=== PATIENT | female | born 1985 | race Caucasian/White ===

== ENCOUNTER 2017-09-07 20:10 | Emergency (ER) | payer OTHER ==
[2017-09-07 20:38] VITALS: BP 132/80
--- NOTE | 2017-09-07 21:00 | ED ---
GI/ HPI - HPI Summary HPI Summary: [age] yr old female with the complaint of left flank pain for over a week, and now NVD for past couple of days. No urinary symptoms. Has had fever, chills. Temp up toe 101. Denies hematuria. She did have a kidney stone removed left kidney 6 months ago. The patient states and her states that he had the same symptoms of NVD a few days ago with fever. - History of Current Complaint Chief Complaint: UCGI Time Seen by Provider: 09/07/17 20:39 Stated Complaint: VOMITING FEVER URINARY Hx Last Menstrual Period: 09/06/17 Pain Intensity: 4 - Allergy/Home Medications Allergies/Adverse Reactions: Allergies Allergy/AdvReac Type Severity Reaction Status Date / Time albuterol Allergy Vomiting Verified 09/07/17 20:31 clarithromycin [From Biaxin] Allergy Vomiting Verified 09/07/17 20:31 Home Medications: Home Medications medroxyPROGESTERone ACETATE* [DEPO-Provera*] 1 inj SEE INSTRUCTIONS 09/07/17 [ History Confirmed 09/07/17] PMH/Surg Hx/FS Hx/Imm Hx - Surgical History Surgery Procedure, Year, and Place: Tonsilectomy. . 2018 Kidneys stones LEFT side Infectious Disease History: No Infectious Disease History: Denies: Hx Clostridium Difficile, Hx Hepatitis, Hx Human Immunodeficiency Virus (HIV), Hx of Known/Suspected MRSA, Hx Shingles, Hx Tuberculosis, Hx Known/ Suspected VRE, Hx Known/Suspected VRSA, History Other Infectious Disease, Traveled Outside the [place] in Last 30 Days - Family History Known Family History: Positive: None - Social History Alcohol Use: Rare Substance Use Type: Reports: None Smoking Status (MU): Never Smoked Tobacco Review of Systems Positive: Fever, Chills Positive: Vomiting, Diarrhea, Nausea Positive: flank pain All Other Systems Reviewed And Are Negative: Yes Physical Exam Triage Information Reviewed: Yes Vital Signs On Initial Exam: Initial Vitals Temp Pulse Resp BP Pulse Ox 98.6 F 105 17 132/80 98 09/07/17 20:32 09/07/17 20:32 09/07/17 20:32 09/07/17 20:32 09/07/17 20:32 Vital Signs Reviewed: Yes Appearance: Positive: Well-Appearing, No Pain Distress Skin: Positive: Warm, Skin Color Reflects Adequate Perfusion Head/Face: Positive: Normal Head/Face Inspection Neck: Positive: Nontender Cardiovascular: Positive: RRR. Negative: Murmur Abdomen Description: Positive: Nontender. Negative: CVA Tenderness (R), CVA Tenderness (L) Musculoskeletal: Positive: Strength/ROM Intact Neurological: Positive: Sensory/Motor Intact, Alert, Oriented to Person Place, Time, CN Intact II-III Psychiatric: Positive: Normal - Lloyd Coma Scale Best Eye Response: 4 - Spontaneous Best Motor Response: 6 - Obeys Commands Best Verbal Response: 5 - Oriented Coma Scale Total: 15 Diagnostics - Vital Signs Vital Signs Temp Pulse Resp BP Pulse Ox 09/07/17 20:32 98.6 F 105 17 132/80 98 - Laboratory Lab Results: Lab Results 09/07/17 Range/Units 20:46 POC Urine Color Anayeli POC Urine Clarity Clear POC Urine pH 5.0 (5-9) POC Ur Specif [place] 1.020 (1.010-1.030) POC Urine Protein Trace A (Negative) POC Ur Glucose (UA) Negative (Negative) POC Urine Ketones 1+ A (Negative) POC Urine Blood Negative (Negative) POC Urine Nitrite Negative (Negative) POC Urine Bilirubin Negative (Negative) POC Urine Urobilinogen 0.2 (Negative) POC U Leukocyte Esteras Negative (Negative) Lab Statement: Any lab studies that have been ordered have been reviewed, and results considered in the medical decision making process. GIGU Course/Dx - Course Course Of Treatment: 32 yr old with negative urine, neg . She has had NVD. Likely gastroenteritis. However with history of prior kidney proceedure, flank pain and history of fever but not here now; it is recommended that she go to the ER for full labs and further work up. They have verbalized to me that they will go to the [place] [facility] where she has received prior care for a further work up this evening. - Diagnoses Provider Diagnoses: Gastroenteritis, Left flank pain Discharge - Sign-Out/Discharge Documenting (check all that apply): Discharge/Admit/Transfer - Discharge Plan Condition: Good Disposition: TRANS HIGHER LVL OF CARE FAC Patient Education Materials: Gastroenteritis (ED), Flank Pain (ED) Referrals: [facility] PHYSICIAN REFERRAL [Outside] No Primary Care Phys,NOPCP [Primary Care Provider] - Additional Instructions: Go the the ER in [place] for further work up for your fever today and left flank pain. - Billing Disposition and Condition Condition: GOOD Disposition: Trans Higher Lvl of Care Fac
== END 2017-09-07 21:12 | disposition short-term general hospital (02) ==
LOC: UCCORT 20:10
DX: K52.9 Noninfective gastroenteritis and colitis, unspecified (principal); R10.9 Unspecified abdominal pain; Z87.442 Personal history of urinary calculi; Z88.1 Allergy status to other antibiotic agents; Z88.8 Allergy status to other drugs, medicaments and biological substances
CPT/HCPCS: 81003; 84702; 99212; G0463

== ENCOUNTER 2019-03-14 13:47 | Emergency (ER) | payer MEDICAID, OTHER ==
--- OUTSIDE RECORDS SUMMARY | 2019-03-14 14:32 | XMS REPORT | Summary of Care ---
:1985 Author Organization [facility] Address [address] [facility] [place] [address] Care Team Providers Name Role Phone Brandin Reynoso MD Primary Care Provider Reason for Referral Radiology Services (Routine) Status Reason Specialty Diagnoses / Referred By Referred To Procedures Contact Contact Pending Review Radiology Diagnoses Other ascites Karol Rabago NP [address] [place] [address] Reason for Visit Reason Comments Follow-up Follow-up on recent labs. Encounter Details Date Type Department Care Team Description 02/20/2019 Office Visit [facility]/Hepa Karol Bran NP (Primary Dx) tolog[address] [facility] [place] [address] [place] [address] [phone] Allergies Active Allergy Reactions Severity Noted Date Comments Clarithromycin GI Reaction 12/30/2018 Albuterol Sulfate GI Reaction 12/30/2018 documented as of this encounter (statuses as of 02/20/2019) Medications Medication Sig Dispensed Refills Start Date End Date Status allopurinol (ZYLOPRIM) Take 100 mg by 0 Active 100 MG Oral Tab mouth DAILY. Glucose Blood In Vitro by In Vitro 0 Active Strip route. lisinopril (PRINIVIL, Take 2.5 mg by 0 Active ZESTRIL) 2.5 MG Oral mouth DAILY. Tab metFORMIN (GLUCOPHAGE) Take 500 mg by 0 Active 500 MG Oral Tab mouth DAILY. documented as of this encounter (statuses as of 02/20/2019) Active Problems Problem Noted Date Type 2 diabetes mellitus 12/30/2018 documented as of this encounter (statuses as of 02/20/2019) Social History Tobacco Use Types Packs/Day Years Used Date Former Smoker 0 Quit: 2019 Smokeless Tobacco: Never Used Sex Assigned at Date Recorded Not on file Job Start Date Occupation Industry Not on file Not on file Not on file Travel History Travel Start Travel End No recent travel history available. documented as of this encounter Last Filed Vital Signs Vital Sign Reading Time Taken Comments Blood Pressure 122/78 02/20/2019 2:01 PM EST Pulse 72 02/20/2019 2:01 PM EST Temperature 36.7 02/20/2019 2:01 PM EST C (98.1 F) Respiratory Rate - - Oxygen Saturation - - Inhaled Oxygen Concentration - - Weight 105 kg (231 lb 8 oz) 02/20/2019 2:01 PM EST Height 160 cm (5' 3") 02/20/2019 2:01 PM EST Body Mass Index 41.01 02/20/2019 2:01 PM EST documented in this encounter Patient Instructions Patient InstructionsWillKarol guerrero NP - 02/20/2019 2:00 PM EST1. Referral placed to Interventional Radiologist as discussed 2. Follow up after the above Thank you for choosing the [facility] for your needs today! -Karol Rabago N.P. , Please call if you need to cancel or change your appt. time. Thank you for choosing [facility] for your health care needs, and for consulting with [facility] today. You may receive a survey following this visit, or after an upcoming hospital stay. As easy as it is to feel overloaded with surveys, we are required to send them out randomly and they do provide important feedback so that we may serve your needs in the best way. Please do take the few minutes required to complete the survey if you receive one. We get them too, after seeing the doctor, and they only take a few minutes to complete. documented in this encounter Progress Notes Karol Rabago NP - 02/20/2019 2:00 PM EST PATIENT: Anais Peterson : 1985 DATE OF SERVICE: 02/20/2019 REFERRING PRACTITIONER: Karol Rabago PRIMARY CARE PROVIDER: Brandin Reynoso CHIEF COMPLAINT: Chief Complaint Patient presents with Follow-up Follow-up on recent labs. Subjective HISTORY OF PRESENT ILLNESS: Anais Peterson is a 34-y.o. female who presents for follow-up of recent testing after being found to have ascites. She has history of abnormal CT and US of the abdomen at her [place] ER visit 2018. She was found to have ascites, with evidence of fatty infiltration of the liver but no hepatosplenomegaly. She alsohas a distant history of pancreatitis, and now is a diabetic, and has family history of liver disease in her mother. Liver testing here to rule out other causes of chronic liver disease were negative. Denies abdominal pain, heartburn, dysphagia, fatigue, nausea, vomiting, melena, hamatemesis, hematochezia, constipation, diarrhea, jaundice, fevers, chills, night sweats, weight loss, easy bruising, chest pain, shortness of breath, dysuria, hematuria, pyuria, joint pains, acholic stools, dark urine orsystemic pruritis. Current Outpatient Medications Medication Sig allopurinol (ZYLOPRIM) 100 MG Oral Tab Take 100 mg by mouth DAILY. Glucose Blood In Vitro Strip by In Vitro route. lisinopril (PRINIVIL, ZESTRIL) 2.5 MG Oral Tab Take 2.5 mg by mouth DAILY. metFORMIN (GLUCOPHAGE) 500 MG Oral Tab Take 500 mg by mouth DAILY. No current facility-administered medications for this visit. Allergies Allergen Reactions Biaxin [Clarithromycin] GI Reaction Ventolin [Albuterol Sulfate] GI Reaction REVIEW OF SYSTEMS: All remaining review of systems was negative except for as noted in the history of present illness/subjective. Objective PHYSICAL EXAMINATION: VITALS: BP 122/78 | Pulse 72 | Temp 98.1 F (36.7 C) | Ht 5' 3" (1.6 m) | Wt 231 lb 8 oz(105 kg) | BMI 41.01 kg/m Body mass index is 41.01 kg/ m. GENERAL: alert, oriented, no acute distress. HEENT: No scleral icterus, MMM Psych: Affect normal Neck: no lymphadenopathy LUNGS: clear to auscultation bilaterally. HEART: regular rhythm, no murmurs, no gallops, no rubs. ABDOMEN: general exam: soft, non-tender, non-distended, without masses or organomegaly, normal active bowel sounds, Brandt's sign negative. Extrmities: no edema Skin: clear Neuro: gait normal, a&o x 3 RECTAL: exam deferred.,a IMPRESSION: ICD-9-CM ICD-10-CM 1. Other ascites 789.59 R18.8 REFER TO INTERVENTIONAL RADIOLOGIST Will perform diagnostic paracentesis. She prefers [facility] for this. Plan PLAN: Patient Instructions 1. Referral placed to Interventional Radiologist as discussed 2. Follow up after the above Thank you for choosing the [facility] for your needs today! -Karol Rabago N.P. , Please call if you need to cancel or change your appt. time. Thank you for choosing [facility] for your health care needs, and for consulting with [facility] today. You may receive a survey following this visit, or after an upcoming hospital stay. As easy as it is to feel overloaded with surveys, we are required to send them out randomly and they do provide important feedback so that we may serve your needs in the best way. Please do take the few minutes required to complete the survey if you receive one. We get them too, after seeing the doctor, and they only take a few minutes to complete. Author: Karol Rabago NP 02/20/2019 14:37 documented in this encounter Plan of Treatment Name Type Priority Associated Diagnoses Order Schedule REFER TO INTERVENTIONAL Referral Routine Other ascites Expected: RADIOLOGIST 02/20/2019, Expires: 02/21/2020 Health Maintenance Due Date Last Done Comments Diabetic Eye Exam 1985 HEMOGLOBIN A1C 1985 PAP SMEAR 1985 PNEUMOCOCCAL 0-64 YRS (1 of 1 - 02/10/1990 PPSV23) DEPRESSION SCREENING 1996 HIV SCREENING 02/10/1999 FOOT EXAM 02/10/2002 INFLUENZA VACCINE (#1) 2018 HPV IMMUNIZATION SERIES Aged Out No longer eligible based on patient's age to complete this topic MENINGOCOCCAL VACCINE IMM Aged Out No longer eligible based on patient's age to complete this topic documented as of this encounter Results Not on filedocumented in this encounter Visit Diagnoses Diagnosis Other ascites - Primary documented in this encounter documented as of this encounter
--- OUTSIDE RECORDS SUMMARY | 2019-03-14 14:32 | XMS REPORT | Continuity of Care Document ---
:1985 External Reference #:[id number] Author Name Carlos Peterson N.P. Address [address] [facility] [address] [place] [address] Care Team Providers Name Role Phone Brandin Reynoso MD - Family Medicine Care Team Information Shop Service Technician [phone] Problems Description No Information Available Social History Type Date Description Comments Sex Unknown ETOH Use Occasionally consumes alcohol Tobacco Use Start: Unknown End: Patient is a former smoker Unknown Recreational Drug Use Denies Drug Use Smoking Status Reviewed: 01/16/19 Patient is a former smoker Allergies, Adverse Reactions, Alerts Active Allergies Reaction Severity Comments Date Ventolin Nausea Moderate 10/31/2018 Biaxin Nausea Moderate 10/31/2018 Medications Active Medications SIG Qnty Indications Ordering Provider Date Allopurinol 1 by mouth every 90tabs M10.9 Brandin Reynoso, 11/14/2018 100mg day M.D. Tablets Metformin HCL Take One Tablet 30tabs E11.9 Brandin Reynoso, 10/31/2018 500mg By Mouth Every M.D. Tablets Day With Food Freestyle Lite Test fs qac and at 100units E11.9 Brandin Reynoso, 2018 bedtime as M.D. Strips needed dx:e11.65 Lisinopril 1 by mouth every 90tabs E11.9 Brandin Reynoso, 10/31/2018 2.5mg day M.D. Tablets History Medications Furosemide 1 by mouth every 7tabs R18.8 Brandin Reynoso, 12/26/2018 - 20mg Tablets day x 1 week M.D. 01/02/2019 Immunizations CPT Code Status Date Vaccine Lot # [id number] Given 12/07/2018 MMR [id number] Vital Signs Date Vital Result Comment 01/18/2019 2:59pm BP Systolic 125 mmHg BP Diastolic 65 mmHg Height 63 inches 5'3" Weight 229.00 lb BMI (Body Mass Index) 40.6 kg/m2 Heart Rate 83 /min Respiratory Rate 16 /min 01/04/2019 3:09pm BP Systolic 132 mmHg BP Diastolic 63 mmHg Height 63 inches 5'3" Weight 229.00 lb BMI (Body Mass Index) 40.6 kg/m2 Heart Rate 94 /min Respiratory Rate 17 /min Results Test Acquired Date Facility Test Result H/L Range Note CMP 01/04/2019 [facility] Sodium 140 mmol/L (136-145) [address] [facility] (607)- - Potassium 4.2 mmol/L (3.6-5.2) Chloride 110 mmol/L High (100-108) Co2 24 mmol/L (22-31) Anion Gap 6 mmol/L Low (7-16) Urea Nitrogen 17 mg/dL (7-24) Creatinine 0.79 mg/dL (0.60-1.00) BUN/Creat Ratio 21.5 RATIO High (10.0-20.0) Glucose 107 mg/dL High (70-99) Calcium 10.1 mg/dL (8.4-10.2) Total Protein 7.5 g/dL (6.4-8.2) Albumin 3.7 g/dL (3.5-4.6) Globulin 3.8 g/dL (2.7-4.3) Alb/Glob Ratio 1.0 RATIO Alkaline Phosphatase 58 U/L (45-117) Bilirubin,Total 0.3 mg/dL (0.0-1.0) Ast (Sgot) 8 U/L Low (11-39) Alt (SGPT) 19 U/L (12-78) GFR >60 ml/min/1.73m2 (>59) GFR ( Amer) >60 ml/min/1.73m2 (>59) GFR Interpretation <SEE NOTE> 1 CBC Without Diff 10/31/2018 [facility] WBC 6.3 10*3/uL (4.1-11.0) [address] [facility] (607)- - RBC 5.29 10*6/uL (4.00-5.40) HGB 15.0 g/dL (12.0-16.0) HCT 44.8 % (36.0-47.0) MCV 84.8 fL (80.0-95.0) MCH 28.4 pg (27.0-32.0) MCHC 33.4 g/dL (32.0-36.0) RDW 14.4 % (10.5-14.5) PLT 267 10*3/uL (150-450) MPV 8.0 fL (7.1-10.7) CMP 10/31/2018 [facility] Sodium 140 mmol/L (136-145) [address] (077)- - Potassium 4.7 mmol/L (3.6-5.2) Chloride 109 mmol/L High (100-108) Co2 24 mmol/L (22-31) Anion Gap 7 mmol/L (7-16) Urea Nitrogen 17 mg/dL (7-24) Creatinine 0.91 mg/dL (0.60-1.00) BUN/Creat Ratio 18.7 RATIO (10.0-20.0) Glucose 106 mg/dL High (70-99) Calcium 9.4 mg/dL (8.4-10.2) Total Protein 7.0 g/dL (6.4-8.2) Albumin 3.6 g/dL (3.5-4.6) Globulin 3.4 g/dL (2.7-4.3) Alb/Glob Ratio 1.1 RATIO Alkaline Phosphatase 55 U/L (45-117) Bilirubin,Total 0.2 mg/dL (0.0-1.0) Ast (Sgot) 9 U/L Low (11-39) Alt (SGPT) 22 U/L (12-78) GFR >60 ml/min/1.73m2 (>59) GFR ( Amer) >60 ml/min/1.73m2 (>59) GFR Interpretation <SEE NOTE> 2 Hemoglobin A1c 10/31/2018 [facility] Hemoglobin A1c @ 5.9 % (4.0-6.0) 3 [address] [facility] (054)- - Est Average Glucose 123 mg/dL Lipid 10/31/2018 [facility] Cholesterol @ 160 mg/dL (0-200) [address] [facility] (313)- - Triglyceride @ 69 mg/dL (30-200) HDL Cholesterol @ 50 mg/dL (>40) 4 Chol/HDL Ratio 3.2 RATIO 5 LDL Chol (Calc) 96 mg/dL (<130) 6 Laboratory test 10/31/2018 [facility] Free Thyroxine 1.03 ng/dL (0.76- 1.46) finding [facility] @ (607)- - TSH,Ultrasensitive @ 1.130 mIU/L (0.360-4.170) Uric Acid 6.9 mg/dL High (2.6-6.0) Esr 15 mm/h (0-20) Mumps Igg (Immune) @ POSITIVE AI 7 Measles Igg AB @ POSITIVE AI 8 Rubella Igg AB @ NEGATIVE AI 9 1 NORMAL KIDNEY FUNCTION OR MILD DISEASE - GFR >OR= 60 CHRONIC KIDNEY DISEASE - GFR 15 - 59 RENAL FAILURE - GFR <15 Est. GFR calculation based on the MDRD study equation, which assumes a steady state for creatinine. Est. GFR should not be used for medication dosing. 2 NORMAL KIDNEY FUNCTION OR MILD DISEASE - GFR >OR= 60 CHRONIC KIDNEY DISEASE - GFR 15 - 59 RENAL FAILURE - GFR <15 Est. GFR calculation based on the MDRD study equation, which assumes a steady state for creatinine. Est. GFR should not be used for medication dosing. 3 Performed using Graphenea immunoassay. Care must be taken when interpreting HbA1c results in patients with a hemoglobin variant or decreased erythrocyte lifespan. Values 5.7 - 6.4% suggest prediabetes. Values >=6.5% are diagnostic for diabetes. REFERENCE: DIABETES CARE 2018: 41(S13-S27). 4 PER NCEP ATP III GUIDELINES: RESULTS LOWER THAN 40 MG/DL ARE SUGGESTIVE OF INCREASED RISK FOR CORONARY ARTERY DISEASE. RESULTS > OR = TO 60 MG/DL ARE CONSIDERED A NEGATIVE RISK FACTOR. 5 INTERPRETATION OF CHOL-HDL RATIO CHD RISK FEMALE MALE VERY HIGH >8.3 >14.3 HIGH 5.6- 8.3 6.7- 14.3 AVERAGE 3.7- 5.6 4.0- 6.7 BELOW AVERAGE 2.5- 3.7 2.7- 4.0 PROTECTED <2.5 <2.7 6 PER NCEP ATP III GUIDELINES: OPTIMAL < 100 NEAR OPTIMAL 100 - 129 BORDERLINE HIGH 130 - 159 HIGH 160 - 189 VERY HIGH > 189 7 IgG antibody to Mumps detected. This may indicate that the patient was exposed to Mumps through infection or vaccination. 8 IgG antibody to Measles detected. This may indicate that the patient was exposed to Measles through infection or vaccination. 9 No Rubella specific IgG antibodies detected. Patient is presumed NOT to have had a previous exposure to Rubella through infection or vaccination. Procedures Date Code Description Status 10/31/2018 01376 Visual Screening Test Completed 10/31/2018 81909 Audiometry, Bekesy, Screening Completed Medical Devices Description No Information Available Encounters Type Date Location Provider Dx Diagnosis Office Visit 01/18/2019 [facility] Carlos Peterson, E11.9 Type 2 diabetes 3:00p N.P. mellitus without complications J30.9 Allergic rhinitis, unspecified E28.2 Polycystic ovarian syndrome Z87.442 Personal history of urinary calculi L20.9 Atopic dermatitis, unspecified E55.9 Vitamin D deficiency, unspecified E78.2 Mixed hyperlipidemia E66.01 Morbid (severe) obesity due to excess calories H52.13 Myopia, bilateral Z83.3 Family history of diabetes mellitus L68.0 Hirsutism M10.9 Gout, unspecified K76.0 Fatty (change of) liver, not elsewhere classified R18.8 Other ascites Z28.21 Immunization not carried out because of patient refusal Office Visit 01/04/2019 3:15p [facility] Carlos Peterson, E11.9 Type 2 diabetes N.P. mellitus without complications J30.9 Allergic rhinitis, unspecified E28.2 Polycystic ovarian syndrome Z87.442 Personal history of urinary calculi L20.9 Atopic dermatitis, unspecified E55.9 Vitamin D deficiency, unspecified E78.2 Mixed hyperlipidemia E66.01 Morbid (severe) obesity due to excess calories H52.13 Myopia, bilateral Z83.3 Family history of diabetes mellitus L68.0 Hirsutism M10.9 Gout, unspecified K76.0 Fatty (change of) liver, not elsewhere classified R18.8 Other ascites Office Visit 12/26/2018 3:00p [facility] Cralos Peterson, E11.9 Type 2 diabetes N.P. mellitus without complications J30.9 Allergic rhinitis, unspecified E28.2 Polycystic ovarian syndrome Z87.442 Personal history of urinary calculi L20.9 Atopic dermatitis, unspecified E55.9 Vitamin D deficiency, unspecified E78.2 Mixed hyperlipidemia E66.01 Morbid (severe) obesity due to excess calories H52.13 Myopia, bilateral Z83.3 Family history of diabetes mellitus L68.0 Hirsutism M10.9 Gout, unspecified K76.0 Fatty (change of) liver, not elsewhere classified R18.8 Other ascites Office Visit 12/07/2018 2:45p [facility] Carlos Peterson, E11.9 Type 2 diabetes N.P. mellitus without complications J30.9 Allergic rhinitis, unspecified E28.2 Polycystic ovarian syndrome Z87.442 Personal history of urinary calculi L20.9 Atopic dermatitis, unspecified E55.9 Vitamin D deficiency, unspecified E78.2 Mixed hyperlipidemia E66.01 Morbid (severe) obesity due to excess calories H52.13 Myopia, bilateral Z83.3 Family history of diabetes mellitus L68.0 Hirsutism M10.9 Gout, unspecified Z23 Encounter for immunization Office Visit 11/14/2018 10:30a [facility] Carlos Peterson, E11.9 Type 2 diabetes N.P. mellitus without complications J30.9 Allergic rhinitis, unspecified E28.2 Polycystic ovarian syndrome Z13.89 Encounter for screening for other disorder Z87.442 Personal history of urinary calculi L20.9 Atopic dermatitis, unspecified E55.9 Vitamin D deficiency, unspecified E78.2 Mixed hyperlipidemia E66.01 Morbid (severe) obesity due to excess calories H52.13 Myopia, bilateral Z83.3 Family history of diabetes mellitus L68.0 Hirsutism M10.9 Gout, unspecified Office Visit 10/31/2018 9:30a [facility] Carlos Peterson, E11.9 Type 2 diabetes N.P. mellitus without complications J30.9 Allergic rhinitis, unspecified E28.2 Polycystic ovarian syndrome Z13.89 Encounter for screening for other disorder Z87.442 Personal history of urinary calculi L20.9 Atopic dermatitis, unspecified E55.9 Vitamin D deficiency, unspecified E78.2 Mixed hyperlipidemia E66.01 Morbid (severe) obesity due to excess calories H52.13 Myopia, bilateral Z83.3 Family history of diabetes mellitus Z00.01 Encounter for general adult medical exam w abnormal findings L68.0 Hirsutism Assessments Date Code Description Provider 01/18/2019 E11.9 Type 2 diabetes mellitus without Carlos Peterson, N.P. complications 01/18/2019 J30.9 Allergic rhinitis, unspecified Carlos Peterson, N.P. 01/18/2019 E28.2 Polycystic ovarian syndrome Carlos Peterson N.P. 01/18/2019 Z87.442 Personal history of urinary calculi Carlos Peterson N.P. 01/18/2019 L20.9 Atopic dermatitis, unspecified Carlos Peterson N.P. 01/18/2019 E55.9 Vitamin D deficiency, unspecified Carlos Peterson N.P. 01/18/2019 E78.2 Mixed hyperlipidemia Carlos Peterson, N.P. 01/18/2019 E66.01 Morbid (severe) obesity due to excess Carlos Peterson, N.P. calories 01/18/2019 H52.13 Myopia, bilateral Carlos Peterson N.P. 01/18/2019 Z83.3 Family history of diabetes mellitus Carlos Peterson N.P. 01/18/2019 L68.0 Hirsutism Carlos Peterson N.PYanick 01/18/2019 M10.9 Gout, unspecified Carlos Peterson N.P. 01/18/2019 K76.0 Fatty (change of) liver, not elsewhere Carlos Peterson N.P. classified 01/18/2019 R18.8 Other ascites Carlos Peterson N.P. 01/18/2019 Z28.21 Immunization not carried out because of Carlos Peterson N.PYanick patient refusal 01/04/2019 E11.9 Type 2 diabetes mellitus without Carlos Peterson, N.P. complications 01/04/2019 J30.9 Allergic rhinitis, unspecified Carlos Peterson N.P. 01/04/2019 E28.2 Polycystic ovarian syndrome Carlos Peterson N.P. 01/04/2019 Z87.442 Personal history of urinary calculi Carlos Peterson, N.P. 01/04/2019 L20.9 Atopic dermatitis, unspecified Carlos Peterson, N.P. 01/04/2019 E55.9 Vitamin D deficiency, unspecified Carlos Peterson, N.P. 01/04/2019 E78.2 Mixed hyperlipidemia Carlos Peterson, N.P. 01/04/2019 E66.01 Morbid (severe) obesity due to excess Carlos Peterson, N.P. calories 01/04/2019 H52.13 Myopia, bilateral Carlos Peterson, N.P. 01/04/2019 Z83.3 Family history of diabetes mellitus Carlos Peterson, N.P. 01/04/2019 L68.0 Hirsutism Carlos Peterson, N.P. 01/04/2019 M10.9 Gout, unspecified Carlos Peterson, N.P. 01/04/2019 K76.0 Fatty (change of) liver, not elsewhere Carlos Peterson, N.P. classified 01/04/2019 R18.8 Other ascites Carlos Peterson, N.P. 12/26/2018 E11.9 Type 2 diabetes mellitus without Carlos Peterson, N.P. complications 12/26/2018 J30.9 Allergic rhinitis, unspecified Carlos Peterson, N.P. 12/26/2018 E28.2 Polycystic ovarian syndrome Carlos Peterson, N.P. 12/26/2018 Z87.442 Personal history of urinary calculi Carlos Peterson, N.P. 12/26/2018 L20.9 Atopic dermatitis, unspecified Carlos Peterson, N.P. 12/26/2018 E55.9 Vitamin D deficiency, unspecified Carlos Peterson, N.P. 12/26/2018 E78.2 Mixed hyperlipidemia Carlos Peterson, N.P. 12/26/2018 E66.01 Morbid (severe) obesity due to excess Carlos Peterson, N.P. calories 12/26/2018 H52.13 Myopia, bilateral Carlos Peterson, N.P. 12/26/2018 Z83.3 Family history of diabetes mellitus Carlos Peterson, N.P. 12/26/2018 L68.0 Hirsutism Carlos Peterson, N.P. 12/26/2018 M10.9 Gout, unspecified Carlos Peterson, N.P. 12/26/2018 K76.0 Fatty (change of) liver, not elsewhere Carlos Peterson, N.P. classified 12/26/2018 R18.8 Other ascites Carlos Peterson, N.P. 12/07/2018 E11.9 Type 2 diabetes mellitus without Carlos Peterson, N.PYanick complications 12/07/2018 J30.9 Allergic rhinitis, unspecified Carlos Peterson, N.P. 12/07/2018 E28.2 Polycystic ovarian syndrome Carlos Peterson N.P. 12/07/2018 Z87.442 Personal history of urinary calculi Carlos Peterson N.P. 12/07/2018 L20.9 Atopic dermatitis, unspecified Carlos Peterson, N.P. 12/07/2018 E55.9 Vitamin D deficiency, unspecified Carlos Peterson, N.P. 12/07/2018 E78.2 Mixed hyperlipidemia Carlos Peterson, N.P. 12/07/2018 E66.01 Morbid (severe) obesity due to excess Carlos Peterson, N.P. calories 12/07/2018 H52.13 Myopia, bilateral Carlos Peterson, N.P. 12/07/2018 Z83.3 Family history of diabetes mellitus Carlos Peterson N.P. 12/07/2018 L68.0 Hirsutism Carlos Peterson N.P. 12/07/2018 M10.9 Gout, unspecified Carlos Peterson, N.P. 12/07/2018 Z23 Encounter for immunization Carlos Peterson N.P. 11/14/2018 E11.9 Type 2 diabetes mellitus without Carlos Peterson, N.PYanick complications 11/14/2018 J30.9 Allergic rhinitis, unspecified Carlos Peterson, N.P. 11/14/2018 E28.2 Polycystic ovarian syndrome Carlos Peterson N.P. 11/14/2018 Z13.89 Encounter for screening for other disorder Carlos Peterson N.P. 11/14/2018 Z87.442 Personal history of urinary calculi Carlos Peterson N.P. 11/14/2018 L20.9 Atopic dermatitis, unspecified Carlos Peterson, N.P. 11/14/2018 E55.9 Vitamin D deficiency, unspecified Carlos Peterson, N.P. 11/14/2018 E78.2 Mixed hyperlipidemia Carlos Peterson, N.P. 11/14/2018 E66.01 Morbid (severe) obesity due to excess Carlos Peterson, N.P. calories 11/14/2018 H52.13 Myopia, bilateral Carlos Peterson, N.P. 11/14/2018 Z83.3 Family history of diabetes mellitus Carlos Peterson N.P. 11/14/2018 L68.0 Hirsutism Carlos Peterson N.P. 11/14/2018 M10.9 Gout, unspecified Carlos Peterson N.P. 10/31/2018 E11.9 Type 2 diabetes mellitus without Carlos Peterson N.P. complications 10/31/2018 J30.9 Allergic rhinitis, unspecified Carlos Peterson N.P. 10/31/2018 E28.2 Polycystic ovarian syndrome Carlos Peterson N.P. 10/31/2018 Z13.89 Encounter for screening for other disorder Carlos Peterson N.P. 10/31/2018 Z87.442 Personal history of urinary calculi Carlos Peterson N.P. 10/31/2018 L20.9 Atopic dermatitis, unspecified Brandin Reynoso M.D. 10/31/2018 L20.9 Atopic dermatitis, unspecified Carlos Peterson N.P. 10/31/2018 E55.9 Vitamin D deficiency, unspecified Carlos Peterson N.P. 10/31/2018 E78.2 Mixed hyperlipidemia Carlos Peterson N.P. 10/31/2018 E66.01 Morbid (severe) obesity due to excess Brandin Reynoso M.D. calories 10/31/2018 E66.01 Morbid (severe) obesity due to excess Carlos Peterson N.P. calories 10/31/2018 H52.13 Myopia, bilateral Brandin Reynoso M.D. 10/31/2018 H52.13 Myopia, bilateral Carlos Peterson N.P. 10/31/2018 Z83.3 Family history of diabetes mellitus Brandin Reynoso M.D. 10/31/2018 Z83.3 Family history of diabetes mellitus Carlos Peterson N.P. 10/31/2018 Z00.01 Encounter for general adult medical Carlos Peterson N.P. examination with abnormal findings 10/31/2018 L68.0 Hirsutism Carlos Peterson N.P. Plan of Treatment Future Appointment(s):04/19/2019 3:00 pm - Carlos Peterson N.P. at [facility] Functional Status Description No Information Available Mental Status Description No Information Available Referrals Refer to Reason for Referral Status Appt Date Sabino Gallardo MD Closed [address] [place] [address] [phone]
[2019-03-14 15:45] VITALS: BP 128/61
== END 2019-03-14 16:31 | disposition left against medical advice (07) ==
LOC: ED 13:47
DX: R10.9 Unspecified abdominal pain (principal); Z53.21 Procedure and treatment not carried out due to patient leaving prior to being seen by health care provider

== ENCOUNTER 2019-07-05 11:20 | Inpatient (IN) | payer OTHER ==
--- NOTE | 2019-07-05 12:55 | ED ---
Abdominal Pain/Female - HPI Summary HPI Summary: Patient is a 34 y/o F presenting to the ED for a chief complaint of abdominal pain and mid back pain. 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 She reports fever of 101 F as recently as 07/05/19 which she is managing with ibuprofen. Patient also notes a mild nonproductive cough and loose watery stools. Patient denies any chills, erythema of eyes, sore throat, chest pain, shortness of breath, nausea, vomiting, dysuria, hematuria, other urinary symptoms, edema, rash, or dizziness. The back pain worsens with deep breaths. She usually has any imaging done at [facility]. - History of Current Complaint Chief Complaint: EDAbdPain Stated Complaint: ABD PAIN BACK PAIN SURGERY 06/12 Time Seen by Provider: 07/05/19 12:08 Hx Obtained From: Patient Hx Last Menstrual Period: 09/06/17 Onset/Duration: Sudden Onset, Lasting Days, Still Present Timing: Constant Severity Initially: Moderate Severity Currently: Moderate Pain Intensity: 4 Pain Scale Used: 0-10 Numeric Location: Diffuse Radiates: No Aggravating Factor(s): Deep Breaths Alleviating Factor(s): OTC Analgesics - Ibuprofen Associated Signs and Symptoms: Positive: Fever - On vitals, 98 F, Cough - Nonproductive, Back Pain - Mid, Diarrhea. Negative: Chest Pain, Dizzy, Urinary Symptoms - Negative dysuria or hematuria, Nausea, Vomiting Allergies/Adverse Reactions: Allergies Allergy/AdvReac Type Severity Reaction Status Date / Time albuterol Allergy Vomiting Verified 07/05/19 11:28 clarithromycin [From Biaxin] Allergy Vomiting Verified 07/05/19 11:28 Home Medications: Home Medications Metformin HCl [Glucophage] 500 mg PO DAILY 03/10/19 [History Confirmed 07/05/19] allopurinoL [Allopurinol] 100 mg PO DAILY 03/10/19 [History Confirmed 07/05/19] lisinopriL [Lisinopril 2.5 MG-] 2.5 mg PO DAILY 03/10/19 [History Confirmed 04/24] Acetaminophen [Tylenol Extra Strength] 500 mg PO Q6H PRN 07/05/19 [History Confirmed 07/05/19] Docusate Sodium [Stool Softener] 50 mg PO Q6H PRN 07/05/19 [History Confirmed ] Ibuprofen TAB* [Motrin TAB* 600 MG] 600 mg PO Q6H PRN 07/05/19 [History Confirmed 07/05/19] traMADol TAB* [Ultram*] 50 mg PO Q6HR PRN 07/05/19 [History Confirmed 07/05/19] PMH/Surg Hx/FS Hx/Imm Hx Previously Healthy: Yes GI History: Reports: Other GI Disorders - Benign appendix adenoma Sensory History: Denies: Hx Legally Blind, Hx Deafness Opthamlomology History: Denies: Hx Legally Blind EENT History: Denies: Hx Deafness - Surgical History Surgical History: Yes Surgery Procedure, Year, and Place: Tonsilectomy. . 2018 Kidneys stones LEFT side. Exploratory surgery, 06/13/19, [facility] Infectious Disease History: No Infectious Disease History: Denies: Hx Clostridium Difficile, Hx Hepatitis, Hx Human Immunodeficiency Virus (HIV), Hx of Known/Suspected MRSA, Hx Shingles, Hx Tuberculosis, Hx Known/ Suspected VRE, Hx Known/Suspected VRSA, History Other Infectious Disease, Traveled Outside the in Last 30 Days - Family History Known Family History: Negative: Cardiac Disease, Hypertension, Diabetes - Social History Occupation: Unemployed Lives: With Family Alcohol Use: None Hx Substance Use: Yes Substance Use Type: Reports: Marijuana Hx Tobacco Use: Yes Smoking Status (MU): Current Some Day Smoker Type: Cigarettes Review of Systems Positive: Fever - On vitals, 98 F. Negative: Chills Negative: Erythema Negative: Sore Throat Negative: Chest Pain Positive: Cough - Nonproductive. Negative: Shortness Of Breath Positive: Abdominal Pain, Diarrhea. Negative: Vomiting, Nausea Negative: dysuria, hematuria Positive: Myalgia - Mid back pain. Negative: Edema Negative: Rash Neurological/Mental Status: Other - Negative dizziness All Other Systems Reviewed And Are Negative: Yes Physical Exam - Summary Physical Exam Summary: Constitutional: Well-developed, Well-nourished, Alert. (-) Distressed Skin: Warm, Dry HENT: Normocephalic; Atraumatic Eyes: Conjunctiva normal Neck: Musculoskeletal ROM normal neck. (-) JVD, (-) Stridor, (-) Tracheal deviation Cardio: Rhythm regular, rate normal, Heart sounds normal; Intact distal pulses; The pedal pulses are 2+ and symmetric. Radial pulses are 2+ and symmetric. (-) Murmur Pulmonary/Chest wall: Effort normal. (-) Respiratory distress, (-) Wheezes, (-) Rales Abd: Soft, (-) tenderness, (-) Distension, (-) Guarding, (-) Rebound Musculoskeletal: (-) Edema Lymph: (-) Cervical adenopathy Neuro: Alert, Oriented x3 Psych: Mood and affect Normal Triage Information Reviewed: Yes Vital Signs On Initial Exam: Initial Vitals Temp Pulse Resp BP Pulse Ox 98.0 F 102 16 134/84 96 07/05/19 11:24 07/05/19 11:24 07/05/19 11:24 07/05/19 11:24 07/05/19 11:24 Vital Signs Reviewed: Yes Procedures - Sedation Patient Received Moderate/Deep Sedation with Procedure: No Diagnostics - Vital Signs Vital Signs Temp Pulse Resp BP Pulse Ox 07/05/19 11:24 98.0 F 102 16 134/84 96 - Laboratory Result Diagrams: 07/05/19 13:16 07/05/19 13:16 Lab Statement: Any lab studies that have been ordered have been reviewed, and results considered in the medical decision making process. - CT Chest/Abdomen/Pelvis CTA CT Interpretation Completed By: Radiologist Summary of CT Findings: Chest/Abdomen/Pelvis CTA IMPRESSION: No definite pulmonary embolus is noted although opacification is suboptimal. No aortic dissection is noted. Right basilar and left lower lobe atelectasis is noted. There is a small amount of perihepatic fluid just under the anterior abdominal wall which may be postoperative in nature. This measures approximately 14 cm in length x 2 cm AP x 11 cm in width. Small amount of free air is noted and this may represent postoperative change. There is fluid in the left splenic fossa. Correlation with history of splenectomy is suggested. No free fluid is noted in the pelvis. Reviewed by Dr. Andino. Re-Evaluation - Re-Evaluation First Eval Re-Evaluation Time: 17:58 Change: Unchanged Comment: At 17:58, patient confirms she had an exploratory laparotomy. Abdominal Pain Fem Course/Dx - Course Course Of Treatment: Patient is a 34 y/o F presenting to the ED for a chief complaint of abdominal pain and mid back pain. 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 She reports fever of 101 F as recently as 07/05/19 which she is managing with ibuprofen. Patient also notes a mild nonproductive cough and loose watery stools. Patient denies any chills, erythema of eyes, sore throat, chest pain, shortness of breath, nausea, vomiting, dysuria, hematuria, other urinary symptoms, edema, rash, or dizziness. The back pain worsens with deep breaths. She usually has any imaging done at [facility]. On exam, unremarkable findings. In the ED course, patient was given iodixanol 100 ml IV , Tylenol 975 mg PO, piperacillin 3.375 gm IVPB, Zofran 4 mg IV, and IV fluids. Laboratory abnormal findings: WBC 18.2, RBC 3.39, Hgb 9, Hct 28, plt count 1059, absolute neuts 13.3, absolute monos 2.2, AST 9, CRP 154. UA shows 1+ protein, 2+ ketones, 1+ urine bacteria. Squamous epithelial cells present. Chest/Abdomen/Pelvis CTA IMPRESSION: No definite pulmonary embolus is noted although opacification is suboptimal. No aortic dissection is noted. Right basilar and left lower lobe atelectasis is noted. There is a small amount of perihepatic fluid just under the anterior abdominal wall which may be postoperative in nature. This measures approximately 14 cm in length x 2 cm AP x 11 cm in width. Small amount of free air is noted and this may represent postoperative change. There is fluid in the left splenic fossa. Correlation with history of splenectomy is suggested. No free fluid is noted in the pelvis. At 16:37, I spoke with a DATA CONTROL ASSISTANT at [facility] who will converse with the surgical oncologist and call back. I impressed upon the elevated WBC and persistent fever reported by the patient since the surgery and continued elevated CRP. We discussed the possibility of active COVID. Patient is having diarrhea and could have gastroenteritis. At 17:12, Dr. Zackery Russell recommends drainage and pigtail catheter for perihepatic fluid. I will inquire about IR drainage and consult the hospitalist. At 17:42, I discussed patients case with Dr. Mathew Gaines. He will call back. At 18:05, Dr. Erika Pressley agrees to consult on the patient. At 18:24, Dr. Mathew Gaines agrees to perform a percutaneous drainage if needed. At 18:27, Dr. Brenda Retana reviewed the patients case and agrees to admit the patient to [facility] with a diagnosis of post- operative infection and post-operative abscess. Patient will be admitted to [facility] with a diagnosis of post-operative infection and post-operative abscess. - Diagnoses Provider Diagnoses: Postoperative abscess, Postoperative infection - Provider Notifications Discussed Care Of Patient With: Zackery Russell - At 16:37, I spoke with a DATA CONTROL ASSISTANT at [facility] who will converse with the surgical oncologist and call back. I impressed upon the elevated WBC and persistent fever reported by the patient since the surgery and continued elevated CRP. We discussed the possibility of active COVID. Patient is having diarrhea and could have gastroenteritis. At 17: 12, Dr. Zackery Russell recommends drainage and pigtail catheter for perihepatic fluid. I will inquire about IR drainage and consult the hospitalist. At 17:42, I discussed patients case with Dr. Mathew Gaines. He will call back. At 18:05, Dr. Erika Pressley agrees to consult on the patient. At 18:24, Dr. Mathew Gaines agrees to perform a percutaneous drainage if needed. At 18:27, Dr. Brenda Retana reviewed the patients case and agrees to admit the patient to [facility] with a diagnosis of post-operative infection and post-operative abscess. Time Discussed With Above Provider: 16:37 Instructed by Provider To: Admit As Inpatient - Critical Care Time Critical Care Time: 75-104 min - 90 minutes CCT Discharge ED - Sign-Out/Discharge Documenting (check all that apply): Patient Departure - Admit - Discharge Plan Condition: Stable Disposition: ADMITTED TO [facility] Referrals: Brandin Reynoso MD [Primary Care Provider] - - Attestation Statements Document Initiated by Scribe: Yes Documenting Scribe: Kristine Rothman Provider For Whom Scribe is Documenting (Include Credential): Mamadou Andino MD Scribe Attestation: Kristine Gonzáles, scribed for Mamadou Andino MD on 07/05/19 at 1839. Status of Scribe Document: Ready
[2019-07-05] MEDS ORDERED: NS 0.9% 1000 ML** 1,000 ML IV ONE ×2 (12:59→19:35)
[2019-07-05 13:53] LABS: Hematocrit 28 % (35-47); Mean Corpuscular HGB Conc 33 g/dL (31-36); Mean Corpuscular Hemoglobin 27 pg (27-31); Mean Corpuscular Volume 82 fL (80-97); Mean Platelet Volume 7.4 fL (7.4-10.4); Platelet Count 1059 10^3/uL (150-450); Red Blood Count 3.39 10^6 /uL (3.70-4.87); Red Cell Distribution Width 17 % (10-15); White Blood Count 18.2 10^3/uL (3.5-10.8)
[2019-07-05 14:07] LABS: Albumin 3.9 g/dL (3.2-5.2); Albumin/Globulin Ratio 0.8 (1-3); C Reactive Protein 153.58 mg/L (<8.01); Calcium 10.8 mg/dL (8.6-10.3); EGFR African American 140.4 (>60); Globulin 4.9 g/dL (2-4); Potassium 3.6 mmol/L (3.5-5.0); Total Bilirubin 0.4 mg/dL (0.2-1.0); Total Protein 8.8 g/dL (6.4-8.9)
[2019-07-05 14:14] LABS: ABS Basophils 0.1 10^3/ul (0-0.2); ABS Lymphocytes 2.6 10^3/ul (1.0-4.8); ABS Monocytes 2.2 10^3/ul (0-0.8); ABS Neutrophils 13.3 10^3/ul (1.5-7.7); Eosinophil % 0.1 %; Lymphocyte % 14.3 %
[2019-07-05] MEDS ORDERED: Iodixanol* (CONTRAST) 320 MG/ML 100 ML SDV IV ONE (14:51)
[2019-07-05] MEDS ORDERED: Acetaminophen TAB* 325 MG PO ONE (15:25)
[2019-07-05 16:13] LABS: Urine Appearance Clear; Urine Bilirubin Negative (Negative); Urine Blood Negative (Negative); Urine Color Yellow; Urine Glucose Negative (Negative); Urine Ketones 2+ (Negative); Urine Nitrite Negative (Negative); Urine Protein 1+(30 mg/dL) (Negative); Urine Specific Gravity 1.053 (1.010-1.030); Urine Urobilinogen Negative (Negative)
[2019-07-05 16:15] LABS: Urine Bacteria 1+ (Absent); Urine Red Blood Cell Trace(0-2/hpf) (Absent); Urine Squamous Epithelial Cell Present (Absent); Urine White Blood Cell Trace(0-5/hpf) (Absent)
[2019-07-05] MEDS ORDERED: Piperacillin/Tazobac ADVAN(*) 3.375 GM in NS 0.9% 100 ML* 100 ML IVPB ONE ×2 (18:03→19:35)
[2019-07-05] MEDS ORDERED: Ondansetron INJ* 2 MG/ML VIAL IV ONE (18:18)
[2019-07-05] MEDS ORDERED: Dextrose 50% Syringe 50 ML* 25 GM/50 ML SYRINGE IV PUSH PRN (19:35)
[2019-07-05] MEDS ORDERED: Acetaminophen TAB* 325 MG PO PRN (19:35)
[2019-07-05] MEDS ORDERED: Morphine 4 MG/ML VIAL (1 ml) 4 MG/ML VIAL IV PRN (19:40)
[2019-07-05] MEDS ORDERED: Zosyn per Pharmacy* NOTE FOLLOW UP SCH (20:00)
--- NOTE | 2019-07-05 20:15 | CONSULT ---
Consult Consult: DATE OF CONSULTATION: 07/05/19 REASON FOR CONSULTATION: Intra-abdominal fluid collection s/p exploratory laparotomy PCP: Brandin Reynoso MD REQUESTING PHYSICIAN: Mamadou Andino MD HPI: Anais Peterson is a 34 year-old woman with a history of diabetes and polycystic ovarian syndrome who presents to the ED with fever, abdominal pain, and back pain for the past 1 week. In March 2019, she underwent appendectomy at [facility]. 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 She is now s/p exploratory laparotomy, bilateral salpingo- oophorectomy, splenectomy, and washout on 06/13/19 at [facility]. She was feeling well at the time of discharge. About 1 week ago, she started to develop fevers which she treated with ibuprofen. She also reports LUQ abdominal pain that radiates around to her mid-back as well as nausea and vomiting. The back pain bothers her most. She has been using ibuprofen and tramadol for pain control. Last bowel movement was a couple of days ago. Stool has been loose, but she also has been taking stool softeners and laxatives. Her appetite has been poor for the past week. It was normal after surgery, and she actually feels hungry now. She denies chest pain or shortness of breath. She is scheduled to return to [facility] for follow up on 07/09. In the ED, CTA thorax was negative for PE and overall unremarkable. CT abd/pelv showed a perihepatic fluid collection 14 x 2 x 11 cm. Labs are notable for WBC 18.2, platelets 1059, and CRP 153.58. She has received Zosyn and Tylenol for pain control. PMH: Appendiceal mucinous lesion Diabetes type 2 PCOS PSH: Appendectomy Mar 2019 in [facility] Ex lap, washout, splenectomy, BSO 06/13/19 at [facility] Tonsillectomy Home Medications Medication Instructions Recorded Confirmed Type Metformin HCl [Glucophage] 500 mg PO DAILY 03/10/19 07/05/19 History allopurinoL [Allopurinol] 100 mg PO DAILY 03/10/19 07/05/19 History lisinopriL [Lisinopril 2.5 MG-] 2.5 mg PO DAILY 03/10/19 07/05/19 History Acetaminophen [Tylenol Extra 500 mg PO Q6H PRN 07/05/19 07/05/19 History Strength] Docusate Sodium [Stool Softener] 50 mg PO Q6H PRN 07/05/19 07/05/19 History Ibuprofen TAB* [Motrin TAB* 600 MG] 600 mg PO Q6H PRN 07/05/19 07/05/19 History traMADol TAB* [Ultram*] 50 mg PO Q6HR PRN 07/05/19 07/05/19 History Allergies albuterol Allergy (Verified 07/05/19 11:28) Vomiting clarithromycin [From Biaxin] Allergy (Verified 07/05/19 11:28) Vomiting FH: Father has diabetes. Her mother due to cerebral hemorrhages after a fall. The patient thinks she may have had cancer but the work up was not completed due to the fall. She has 2 brothers, one with diabetes. SH: The patient lives with her and daughter. She smokes a mix of tobacco and marijuana. She denies alcohol use or other recreational drug use. ROS: 10-point review of systems was obtained. Pertinent positives and negatives are in the HPI. PHYSICAL EXAM: Temp Pulse Resp BP Pulse Ox 98.8 F 97 16 127/67 93 07/05/19 15:51 07/05/19 17:36 07/05/19 11:24 07/05/19 17:36 07/05/19 17:36 General: Appears uncomfortable but no acute distress. She is sitting up on the stretcher. HEENT: Normocephalic and atraumatic. Pupils equal, no scleral icterus. She wears glasses. Hirsute. Neck is supple. Trachea midline CV: RRR Respiratory: CTA. No accessory muscle use. Abdomen: Soft, obese. Mild tenderness to palpation in the LUQ. No rebound or guarding. Well-healing midline incision with lena in place. Mild erythema around the lena, no fluctuance. Extremities: Warm. No pedal edema. No calf tenderness. Skin: Warm and dry. Neuro: Alert and oriented x3. Moves all extremities equally. Psych: Flat affect. Laboratory Results - last 24 hr 07/05/19 07/05/19 07/05/19 13:16 13:16 13:16 WBC 18.2 H RBC 3.39 L Hgb 9.0 L Hct 28 L MCV 82 MCH 27 MCHC 33 RDW 17 H Plt Count 1059 H MPV 7.4 Neut % (Auto) 73.1 Lymph % (Auto) 14.3 [place] % (Auto) 12.1 Eos % (Auto) 0.1 Baso % (Auto) 0.4 Absolute Neuts (auto) 13.3 H Absolute Lymphs (auto) 2.6 Absolute Monos (auto) 2.2 H Absolute Eos (auto) 0.0 Absolute Basos (auto) 0.1 Absolute Nucleated RBC 0.0 Nucleated RBC % 0.0 Sodium 135 Potassium 3.6 Chloride 102 Carbon Dioxide 24 Anion Gap 9 BUN 13 Creatinine 0.59 Est GFR ( Amer) 140.4 Est GFR (Non-Af Amer) 116.0 BUN/Creatinine Ratio 22.0 H Glucose 104 H Lactic Acid 0.7 Calcium 10.8 H Total Bilirubin 0.40 AST 9 L ALT 9 Alkaline Phosphatase 76 C-Reactive Protein 153.58 H Total Protein 8.8 Albumin 3.9 Globulin 4.9 H Albumin/Globulin Ratio 0.8 L Lipase 28 Urine Color Urine Appearance Urine pH Ur Specific [place] Urine Protein Urine Ketones Urine Blood Urine Nitrate Urine Bilirubin Urine Urobilinogen Ur Leukocyte Esterase Urine WBC (Auto) Urine RBC (Auto) Ur Squamous Epith Cells Urine Bacteria Urine Glucose 07/05/19 15:34 WBC RBC Hgb Hct MCV MCH MCHC RDW Plt Count MPV Neut % (Auto) Lymph % (Auto) [place] % (Auto) Eos % (Auto) Baso % (Auto) Absolute Neuts (auto) Absolute Lymphs (auto) Absolute Monos (auto) Absolute Eos (auto) Absolute Basos (auto) Absolute Nucleated RBC Nucleated RBC % Sodium Potassium Chloride Carbon Dioxide Anion Gap BUN Creatinine Est GFR ( Amer) Est GFR (Non-Af Amer) BUN/Creatinine Ratio Glucose Lactic Acid Calcium Total Bilirubin AST ALT Alkaline Phosphatase C-Reactive Protein Total Protein Albumin Globulin Albumin/Globulin Ratio Lipase Urine Color Yellow Urine Appearance Clear Urine pH 5.0 Ur Specific [place] 1.053 H Urine Protein 1+(30 mg/dl) A Urine Ketones 2+ A Urine Blood Negative Urine Nitrate Negative Urine Bilirubin Negative Urine Urobilinogen Negative Ur Leukocyte Esterase Negative Urine WBC (Auto) Trace(0-5/hpf) Urine RBC (Auto) Trace(0-2/hpf) Ur Squamous Epith Cells Present A Urine Bacteria 1+ A Urine Glucose Negative CT abd/pelv: Large perihepatic fluid collection anterior abdomen. 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 The intra-abdominal collection is in the anterior abdomen but she complains most about back pain, which seems atypical. The patient is also being ruled out for coronavirus due to the fever and abdominal pain. The incision appears to be healing well and there is no evidence of a subcutanous abscess on CT scan. I agree with percutaneous drainage of the abdominal fluid collection. Dr Andino has already discussed the case with Dr Gaines. Dr Andino has also been in contact with her surgical team at [facility], who also agrees with drainage of the fluid collection. PLAN: Continue IV antibiotics. Plan for drain by IR tomorrow. Diet as tolerated, NPO after midnight. Pain control Patient has follow up appt at [facility] on 07/10/19, and I recommended that she keep that appt for now. Will follow.
--- NOTE | 2019-07-05 21:09 | HP ---
CC: Dr. Reynoso; Dr. Gaines; Dr. Erika Pressley * HISTORY AND PHYSICAL: DATE OF ADMISSION: 07/05/19 PRIMARY CARE PROVIDER: Dr. Reynoso. ATTENDING PHYSICIAN WHILE IN THE HOSPITAL: Dr. Johnson * (report dictated by Jason Rebolledo NP). CONSULTING INTERVENTIONAL RADIOLOGIST: Dr. Gaines. CONSULTING SURGEON: Dr. Erika Pressley. CHIEF COMPLAINT: 1. Abdominal pain. 2. Fever. 3. Vomiting. HISTORY OF PRESENT ILLNESS: Ms. 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 She does not know the name of the benign tumor. This was done in [place]; we are trying to get records. She says that over the last 48 hours, she has had progressively worsening abdominal discomfort with associated fevers and chills at home, although none documented here. She has been having pain described as a pressure, sharp, stabbing pain that radiates into her back and states that she has been having some nausea and vomiting and states that she has had a decreased appetite. She specifically denied any cough , sore throat, rhinorrhea, congestion, shortness of breath or chest pain. She says that she was concerned because her belly pain was getting worse. She felt that she was having some worsening redness near the midline abdominal incision. She came into the ER because the pain had become too great. She was evaluated and was found to have signs of sepsis. CT abdomen did show a fluid collection in her abdomen. Because of these findings, we were asked to evaluate for admission. PAST MEDICAL HISTORY: Significant for: 1. Diabetes. 2. Polycystic ovarian syndrome. 3. Hypertension. 4. Gout. PAST SURGICAL HISTORY: 1. She had an appendectomy. 2. Splenectomy. 3. Bilateral salpingo-oophorectomy. HOME MEDICATIONS: Include: 1. Tramadol 50 mg p.o. every 6 hours as needed. 2. Ibuprofen 600 mg every 6 hours as needed. 3. Colace 50 mg every 6 hours as needed. 4. Tylenol 500 mg every 6 hours as needed. 5. Lisinopril 2.5 mg daily. 6. Allopurinol 100 mg p.o. daily. 7. Metformin 500 mg p.o. daily. ALLERGIES TO MEDICATIONS: Include ALBUTEROL and BIAXIN. FAMILY HISTORY: She says both her parents to her knowledge are healthy, is reviewed and noncontributory. SOCIAL HISTORY: She does smoke marijuana. She does not drink alcohol. She is studying [employer]. Surrogate decision maker would be her fiance. REVIEW OF SYSTEMS: There is a reported fever at home, but none documented here. She denied any significant weight change. There is no double vision. She denies having any ear discharge. There was again no rhinorrhea, no sore throat, no thyroid enlargement. Denies any chest pain. No shortness of breath. No cough. There was abdominal pain. There was nausea. There was vomiting. There is no dysuria, no frequency, no seizure, no loss of consciousness, no pruritus and no skin ulcerations. Review of 14 systems completed, all others are negative. PHYSICAL EXAMINATION GENERAL: At this time, Ms. Peterson is a 34-year-old female patient. She is sitting in the ED stretcher. She does not appear to be in any acute distress. She appears to be well nourished and well developed. VITAL SIGNS: Blood pressure 127/67, pulse 97, respirations 18, O2 saturation 93 % on room air, temperature 98.8. HEENT: Head is atraumatic and normocephalic. Eyes: EOMs are intact. Sclerae anicteric and not pale. Throat: Oral mucosa appears to be moist. No oropharyngeal erythema. NECK: Supple. LUNGS: Clear to auscultation. No wheezes, rales, or rhonchi. HEART: Sounds S1 and S2. Regular rate and rhythm. No murmurs, rubs, or gallops. ABDOMEN: Soft. There was tenderness near the midline incision, but bowel sounds were present. She does have a midline abdominal incision, which appears to be intact, clean and dry. There is no purulent discharge. There is some erythema just at the lena, but not diffusely around the incision site and there is no warmth palpated. EXTREMITIES: Pulses were 2+ throughout. She had no peripheral edema. She is moving all 4 extremities with 5/5 strength. NEUROLOGIC: She is awake, alert, and oriented x3. SKIN: Grossly intact with the exception she has a midline abdominal incision. DIAGNOSTIC STUDIES/LAB DATA: WBC of 18.2, RBC of 3.39, hemoglobin 9.0, hematocrit of 28, platelet count of 1059. Sodium 135, potassium 3.6, chloride 102, bicarb 24, BUN 13, creatinine 0.59, glucose 104, lactic 0.7, calcium 10.8. Total bili 0.4, AST 9, ALT 9, alk phos 76. CRP 153. Lipase normal. Urine showed a high specific gravity of 1.053, protein 1+, ketones 2+, 1+ bacteria. She had a CTA of the chest, abdomen and pelvis, which showed impression: No definite pulmonary embolism is noted, although opacification is suboptimal. No aortic dissection is noted. Right basilar and left lower lobe atelectasis is noted. There is a small amount of perihepatic fluid just under the anterior abdominal wall, which may be postoperative in nature, measures approximately 14 cm in length by 2 cm in AP by 11 cm in width. Small amount of free air is noted and this may represent postoperative change. There is fluid in the left splenic fossa, correlation with history, splenectomy is suggested. No free fluid is noted in the pelvis. Old medical records were reviewed. ASSESSMENT AND PLAN: Ms. Peterson is a 34-year-old female patient coming into the ED today with complaints of abdominal pain, nausea, vomiting and fever. In the setting of having had a surgery approximately a month ago, she had a splenectomy and chemo wash and bilateral salpingo-oophorectomy. I am getting those records. Now found to have a fluid collection. She will be admitted under inpatient status for: 1. Sepsis, most likely secondary to intraperitoneal abscess. At this point, Dr. Gaines has been consulted. The plan is for an IR drain and cultures. She will be placed on Zosyn. She will get another liter of fluid down here in the ED. I did not give her the full 30 cc/kg because her lactic was stable and her blood pressure is holding. I will place her on normal saline 100 an hour. Surgery has been consulted. We will certainly start Zosyn. Repeat labs in the morning and continue to follow. COVID-19 was also sent off down in the ER, but I have a low suspicion for this given the lack of respiratory symptoms. 2. Hypercalcemia. This could be secondary to dehydration. I will go ahead and hydrate her and repeat a BMP later tonight. 3. Anemia. This could be postoperative anemia. I will trend her H and H given the fluid to make sure is not dropping. 4. Elevated platelets, most likely secondary to reaction due to acute infection. 5. Diabetes. She will be placed on a lispro sliding scale. 6. Hypertension. We will hold her lisinopril and restart when able. 7. Gout. Continue allopurinol. 8. DVT prophylaxis: She is moderate risk. I have placed her on Lovenox subcu. 9. Code status: Full code. 10. Fluids, electrolytes and nutrition: She can have a consistent carb diet and n.p.o. after midnight. TIME SPENT: Time spent on the admission was approximately 60 minutes, greater than half the time was spent [id number] with the patient obtaining my history and physical; the other half time was spent going over the plan of care with the patient and implementing plan of care. I did discuss the plan of care with my attending, Dr. Johnson; and she is in agreement. JASON REBOLLEDO, INVESTIGATIVE AGENT [id number]/[facility] #: [id number] JORDIN
[2019-07-05] MEDS: Enoxaparin(*) 40 MG/0.4 ML SYR SUBCUT SCH (22:42)
[2019-07-05] MEDS: ZOSYN 3.375 GM Q8H per EXTENDED INFUSION IVPB SCH ×2 (22:44)
[2019-07-05] MEDS: NS 0.9% 1000 ML** 1,000 ML IV SCH (22:46)
[2019-07-05] MEDS: Ondansetron INJ* 2 MG/ML VIAL IV PRN (23:13)
[2019-07-05] MEDS: oxyCODONE/Acetamin 5/325 MG* TAB PO PRN (23:13)
[2019-07-05] MEDS ORDERED: Morphine INJ* 4 MG/ML 1 ML SYRINGE (NEW SYRINGE VERSION) IV PRN (23:45)
[2019-07-05 23:48] LABS: Hematocrit 27 % (35-47); Hemoglobin 8.4 g/dL (12.0-16.0)
[2019-07-05 23:58] LABS: BUN/Creatinine Ratio 16.7 (8-20); Calcium 9.7 mg/dL (8.6-10.3); EGFR African American 155.5 (>60); EGFR Non-African American 128.5 (>60); Potassium 3.8 mmol/L (3.5-5.0)
[2019-07-06] MEDS: oxyCODONE/Acetamin 5/325 MG* TAB PO PRN ×5 (05:30→23:51)
[2019-07-06] MEDS: ZOSYN 3.375 GM Q8H per EXTENDED INFUSION IVPB SCH ×6 (05:42→21:24)
[2019-07-06 05:46] LABS: Hematocrit 26 % (35-47); Hemoglobin 8.5 g/dL (12.0-16.0); Mean Corpuscular HGB Conc 33 g/dL (31-36); Mean Corpuscular Hemoglobin 26 pg (27-31); Mean Corpuscular Volume 81 fL (80-97); Mean Platelet Volume 7.1 fL (7.4-10.4); Platelet Count 956 10^3/uL (150-450); Red Blood Count 3.21 10^6 /uL (3.70-4.87); Red Cell Distribution Width 17 % (10-15); White Blood Count 18.8 10^3/uL (3.5-10.8)
[2019-07-06 05:51] LABS: ABS Basophils 0.1 10^3/ul (0-0.2); ABS Lymphocytes 2.6 10^3/ul (1.0-4.8); ABS Monocytes 2.5 10^3/ul (0-0.8); ABS Neutrophils 13.6 10^3/ul (1.5-7.7); Eosinophil % 0.1 %; INR 1.55 (0.82-1.09); Lymphocyte % 13.7 %
[2019-07-06 06:02] LABS: Calcium 9.9 mg/dL (8.6-10.3); EGFR African American 146.1 (>60); EGFR Non-African American 120.7 (>60); Potassium 3.7 mmol/L (3.5-5.0)
[2019-07-06] MEDS: Insulin LISPRO* 1 UNITS UNIT SUBCUT SCH ×3 (09:05→17:31)
[2019-07-06] MEDS: NS 0.9% 1000 ML** 1,000 ML IV SCH ×2 (09:06→21:24)
[2019-07-06] MEDS: Allopurinol TAB* 100 MG PO SCH ×2 (09:06→09:30)
--- NOTE | 2019-07-06 09:36 | PN ---
Progress Note - Progress Note Date of Service: 07/06/19 Note: Continues to have LUQ abdominal pain radiating to the back. The pain is much better this morning compared to yesterday. She has had intermittent nausea which she thinks may be due to some of her medications. Denies chest pain or SOB. She has been afebrile. Vital Signs - 12 hr Temp Pulse Resp BP Pulse Ox 07/06/19 09:30 16 07/06/19 07:44 97.2 F 100 16 132/73 99 07/06/19 05:30 20 07/06/19 03:31 97.4 F 96 16 131/73 100 07/06/19 01:00 16 07/05/19 23:13 16 07/05/19 22:37 98.9 F 98 18 136/68 97 07/05/19 22:06 93 137/69 89 07/05/19 22:00 94 89 07/05/19 21:36 103 129/71 100 Intake & Output 07/05/19 07/06/19 07/06/19 22:59 06:59 14:59 Intake Total 2100 100 960 Balance 2100 100 960 Weight 210 lb 4.8 oz Intake: IV Fluids 2100 960 NS (0.9%) 960 Oral 100 Other: # Bowel Movements 0 Estimated Stool Amount Medium # Voids 1 General: NAD, sitting up in bed Abdomen: Soft, nondistended. Tenderness LUQ, no rebound or guarding. Incision healing well, so surrounding erythema. Neuro: Alert and oriented x3. Moves all extremities equally. Psych: Flat affect Laboratory Results 07/06/19 07/06/19 07/06/19 05:28 05:28 05:28 WBC 18.8 H RBC 3.21 L Hgb 8.5 L Hct 26 L MCV 81 MCH 26 L MCHC 33 RDW 17 H Plt Count 956 H D MPV 7.1 L Neut % (Auto) 72.1 Lymph % (Auto) 13.7 Ford % (Auto) 13.3 Eos % (Auto) 0.1 Baso % (Auto) 0.8 Absolute Neuts (auto) 13.6 H Absolute Lymphs (auto) 2.6 Absolute Monos (auto) 2.5 H Absolute Eos (auto) 0.0 Absolute Basos (auto) 0.1 Absolute Nucleated RBC 0.0 Nucleated RBC % 0.0 INR (Anticoag Therapy) 1.55 H Sodium 135 Potassium 3.7 Chloride 106 Carbon Dioxide 23 Anion Gap 6 BUN 8 Creatinine 0.57 Est GFR ( Amer) 146.1 Est GFR (Non-Af Amer) 120.7 BUN/Creatinine Ratio 14.0 Glucose 95 POC Glucose (mg/dL) Lactic Acid Calcium 9.9 Total Bilirubin AST ALT Alkaline Phosphatase C-Reactive Protein Total Protein Albumin Globulin Albumin/Globulin Ratio Lipase Urine Color Urine Appearance Urine pH Ur Specific [place] Urine Protein Urine Ketones Urine Blood Urine Nitrate Urine Bilirubin Urine Urobilinogen Ur Leukocyte Esterase Urine WBC (Auto) Urine RBC (Auto) Ur Squamous Epith Cells Urine Bacteria Urine Glucose A&P 34F with intra-abdominal fluid collection s/p ex lap, splenectomy, BSO, washout on 06/13/19. -Plan for drain placement today. -Continue IV antibiotics. -Diet as tolerated after procedure.
--- NOTE | 2019-07-06 11:35 | PN ---
Subjective Date of Service: 07/06/19 Interval History: Pt c/o pain in LUQ, is NPO for procedure today Objective Active Medications: Acetaminophen (Tylenol Tab*) 650 mg PO Q4H PRN PRN Reason: PAIN - MILD Allopurinol (Zyloprim Tab*) 100 mg PO DAILY [facility] Last Admin: 07/06/19 09:30 Dose: 100 mg Dextrose (D50w Syringe 50 Ml*) 12.5 gm IV PUSH .FOR FS < 60 - SS PRN PRN Reason: FS < 60 Docusate Sodium (Colace Cap*) 100 mg PO BID PRN PRN Reason: CONSTIPATION Enoxaparin Sodium (Lovenox(*)) 40 mg SUBCUT Q24H [facility] Last Admin: 07/05/19 22:42 Dose: 40 mg Sodium Chloride (Ns 0.9% 1000 Ml) 1,000 mls @ 100 mls/hr IV PER RATE [facility] Last Admin: 07/06/19 09:06 Dose: 100 mls/hr Piperacillin Sod/Tazobactam (Sod 3.375 gm/ Sodium Chloride) 100 mls @ 25 mls/ hr IVPB Q8H [facility] Last Admin: 07/06/19 05:42 Dose: 25 mls/hr Insulin Human Lispro (Humalog*) 0 units SUBCUT [facility]; Protocol Last Admin: 07/06/19 09:05 Dose: Not Given Morphine Sulfate (Morphine Inj (Syringe)*) 4 mg IV Q4H PRN PRN Reason: PAIN - SEVERE Ondansetron HCl (Zofran Inj*) 4 mg IV Q6H PRN PRN Reason: NAUSEA Last Admin: 07/05/19 23:13 Dose: 4 mg Oxycodone/Acetaminophen (Percocet 5/325 Tab*) 1 tab PO Q4H PRN PRN Reason: PAIN - MODERATE Last Admin: 07/06/19 09:30 Dose: 1 tab Pharmacy Consult (Zosyn Per Pharmacy*) 1 note FOLLOW UP .ZOSYN PER PHARMACY [facility] Vital Signs - 8 hr 07/06/19 07/06/19 07/06/19 05:30 07:44 09:30 Temperature 97.2 F Pulse Rate 100 Respiratory 20 16 16 Rate Blood Pressure 132/73 (mmHg) O2 Sat by Pulse 99 Oximetry 07/06/19 11:28 Temperature 97.4 F Pulse Rate 92 Respiratory 16 Rate Blood Pressure 111/53 (mmHg) O2 Sat by Pulse 99 Oximetry Oxygen Devices in Use Now: None Appearance: 34 yo F in nAD, aAOx3 Eyes: No Scleral Icterus, PERRLA Ears/Nose/Mouth/Throat: NL Teeth, Lips, Gums, Mucous Membranes Moist Neck: NL Appearance and Movements; NL JVP, Trachea Midline Respiratory: Symmetrical Chest Expansion and Respiratory Effort, Clear to Auscultation Cardiovascular: NL Sounds; No Murmurs; No JVD, RRR Abdominal: - - tender in LUQ, no rebound, no guarding, BS hypoactive throughout Lymphatic: No Cervical Adenopathy Extremities: No Edema Skin: No Nodules or Sclerosis, - - hirsutism noted Neurological: Alert and Oriented x 3, NL Muscle Strength and Tone Result Diagrams: 07/06/19 05:28 07/06/19 05:28 Assess/Plan/Problems-Billing Assessment: 34 yo F with 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 (appy done in [place] 03/23), went to [facility] for splenectomy and oophrectomy and chemo infusion on 06/13/19 for mucinous tumor involvement, now with abd pain beginning 07/03/19 with likely intra-abd abscess - Patient Problems (1) Abdominal abscess Comment: CT at admission shows abscess at [id number] cm-for IR bx and drainage today cont Zosyn appreciate surgery consult leukocytosis and tachycardia due to ongoing sepsis (2) DM2 (diabetes mellitus, type 2) Comment: DM2, holding metformin, cont ISS (3) Suspected COVID-19 virus infection Comment: test pending (4) Anemia Comment: likely due to extensive surgeries in the past 3 mos, con to monitor , no signs of acute bleeding (5) DVT prophylaxis Comment: cont lovenox Status and Disposition: Inpatient
[2019-07-06] MEDS: Ondansetron INJ* 2 MG/ML VIAL IV PRN (13:06)
[2019-07-06] MEDS ORDERED: fentaNYL* 50 MCG/ML 2 ML VIAL (100 MCG VIAL) ONE (15:17)
--- NOTE | 2019-07-06 16:25 | BRIEFOPN ---
Brief Operative/Procedure Note - Operation Details Pre-Op Diagnosis: RUQ tiffanie and subhepatic fluid collection status post abdominal surgery. Post-Op Diagnosis: RUQ tiffanie and subhepatic fluid & phegmon collection status post abdominal surgery. Procedures: Ultrasound and fluoroscopy guided RUQ 10 [place] pigtail drain placement. Surgeon(s)/Proceduralists: Mathew Gaines M.D. Anesthesia: IV fentanyl and 1% lidocaine locally Estimated Blood Loss: None Findings: Partly fluid, but mostly phlegmonous collection correlating to recent CT A&P images Specimen(s)/Culture(s) Description: 20 mL of drak serious fluid drained and delivered to laboratory. Complications: None
[2019-07-06] MEDS: Enoxaparin(*) 40 MG/0.4 ML SYR SUBCUT SCH (19:37)
[2019-07-06] MEDS: Docusate CAP* 100 MG PO PRN (19:44)
[2019-07-07] MEDS: ZOSYN 3.375 GM Q8H per EXTENDED INFUSION IVPB SCH ×6 (05:32→22:57)
[2019-07-07] MEDS: oxyCODONE/Acetamin 5/325 MG* TAB PO PRN ×3 (05:52→21:43)
[2019-07-07 06:44] LABS: Hematocrit 25 % (35-47); Hemoglobin 8.1 g/dL (12.0-16.0); Mean Corpuscular HGB Conc 33 g/dL (31-36); Mean Corpuscular Hemoglobin 27 pg (27-31); Mean Corpuscular Volume 82 fL (80-97); Mean Platelet Volume 7.4 fL (7.4-10.4); Platelet Count 833 10^3/uL (150-450); Red Blood Count 3.04 10^6 /uL (3.70-4.87); Red Cell Distribution Width 17 % (10-15); White Blood Count 12.6 10^3/uL (3.5-10.8)
[2019-07-07 07:07] LABS: BUN/Creatinine Ratio 18.8 (8-20); Calcium 9.7 mg/dL (8.6-10.3); EGFR African American 178.1 (>60); EGFR Non-African American 147.2 (>60); Potassium 3.5 mmol/L (3.5-5.0)
[2019-07-07] MEDS: Insulin LISPRO* 1 UNITS UNIT SUBCUT SCH ×3 (08:28→16:13)
[2019-07-07 08:40] LABS: ABS Basophils 0.1 10^3/ul (0-0.2); ABS Eosinophils 0.2 10^3/ul (0-0.6); ABS Lymphocytes 2.5 10^3/ul (1.0-4.8); ABS Neutrophils 7.9 10^3/ul (1.5-7.7); Eosinophil % 1.2 %; Lymphocyte % 19.4 %; Nucleated Red Blood Cells % 0.1
[2019-07-07] MEDS: Allopurinol TAB* 100 MG PO SCH (09:08)
[2019-07-07] MEDS: NS 0.9% 1000 ML** 1,000 ML IV SCH (09:11)
--- NOTE | 2019-07-07 10:18 | PN ---
Subjective Date of Service: 07/07/19 Interval History: Pt passes flatus, c/o pain in RLQ, drain outputting serous straw colored fluid Objective Active Medications: Acetaminophen (Tylenol Tab*) 650 mg PO Q4H PRN PRN Reason: PAIN - MILD Allopurinol (Zyloprim Tab*) 100 mg PO DAILY [facility] Last Admin: 07/07/19 09:08 Dose: 100 mg Dextrose (D50w Syringe 50 Ml*) 12.5 gm IV PUSH .FOR FS < 60 - SS PRN PRN Reason: FS < 60 Docusate Sodium (Colace Cap*) 100 mg PO BID PRN PRN Reason: CONSTIPATION Last Admin: 07/06/19 19:44 Dose: 100 mg Enoxaparin Sodium (Lovenox(*)) 40 mg SUBCUT Q24H [facility] Last Admin: 07/06/19 19:37 Dose: 40 mg Piperacillin Sod/Tazobactam (Sod 3.375 gm/ Sodium Chloride) 100 mls @ 25 mls/ hr IVPB Q8H [facility] Last Admin: 07/07/19 05:32 Dose: 25 mls/hr Insulin Human Lispro (Humalog*) 0 units SUBCUT AC [facility]; Protocol Last Admin: 07/07/19 08:28 Dose: Not Given Morphine Sulfate (Morphine Inj (Syringe)*) 4 mg IV Q4H PRN PRN Reason: PAIN - SEVERE Ondansetron HCl (Zofran Inj*) 4 mg IV Q6H PRN PRN Reason: NAUSEA Last Admin: 07/06/19 13:06 Dose: 4 mg Oxycodone/Acetaminophen (Percocet 5/325 Tab*) 1 tab PO Q4H PRN PRN Reason: PAIN - MODERATE Last Admin: 07/07/19 05:52 Dose: 1 tab Pharmacy Consult (Zosyn Per Pharmacy*) 1 note FOLLOW UP .ZOSYN PER PHARMACY [facility] Vital Signs - 8 hr 07/07/19 07/07/19 07/07/19 03:15 05:52 08:00 Temperature 96.8 F 98.0 F Pulse Rate 82 86 Respiratory 14 16 16 Rate Blood Pressure 125/62 127/63 (mmHg) O2 Sat by Pulse 98 98 Oximetry Oxygen Devices in Use Now: None Appearance: 34 yo f in nAD, aAOx3 Eyes: No Scleral Icterus, PERRLA Ears/Nose/Mouth/Throat: NL Teeth, Lips, Gums, Mucous Membranes Moist Neck: NL Appearance and Movements; NL JVP, Trachea Midline Respiratory: Symmetrical Chest Expansion and Respiratory Effort Cardiovascular: NL Sounds; No Murmurs; No JVD, RRR Abdominal: - - soft, tender in RLQ, drain in place,no rebound, no guarding, BS+ Lymphatic: No Cervical Adenopathy Extremities: No Edema Skin: No Nodules or Sclerosis Neurological: Alert and Oriented x 3, NL Muscle Strength and Tone Result Diagrams: 07/07/19 05:51 07/07/19 05:51 Microbiology and Other Data: Microbiology 07/06/19 16:00 Gram Stain - Preliminary Body Fluid - Abdominal Body Fluid Culture - Preliminary No Growth Day 1 07/05/19 21:09 Aerobic Blood Culture - Preliminary Blood Venous No Growth Day 1 Anaerobic Blood Culture - Preliminary No Growth Day 1 07/05/19 13:16 Aerobic Blood Culture - Preliminary Blood Venous No Growth Day 1 Anaerobic Blood Culture - Preliminary No Growth Day 1 07/05/19 15:34 Urine Culture - Final Urine No Growth (<1,000 CFU/mL) Assess/Plan/Problems-Billing Assessment: 34 yo F with 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 Gaines on 07/06/19 cont Zosyn appreciate surgery consult leukocytosis and tachycardia due to sepsis improved (2) DM2 (diabetes mellitus, type 2) Comment: DM2, holding metformin, cont ISS (3) Suspected COVID-19 virus infection Comment: test pending (4) Anemia Comment: likely due to extensive surgeries in the past 3 mos, con to monitor , no signs of acute bleeding (5) DVT prophylaxis Comment: cont lovenox Status and Disposition: Inpatient
--- NOTE | 2019-07-07 11:58 | PN ---
Progress Note - Progress Note Date of Service: 07/07/19 Note: Feeling better this morning after the drain was placed. She has mild pain RUQ around drain. She denies LUQ pain, and the back pain is essentially gone. She has been eating and denies pain after eating or nausea. Afebrile. Denies chest pain or SOB. Has been walking around her room. Vital Signs - 12 hr Temp Pulse Resp BP Pulse Ox 07/07/19 11:15 97.1 F 87 15 125/62 100 07/07/19 08:00 98.0 F 86 16 127/63 98 07/07/19 05:52 16 07/07/19 03:15 96.8 F 82 14 125/62 98 07/07/19 01:53 18 Intake & Output 07/06/19 07/07/19 07/07/19 22:59 06:59 14:59 Intake Total 100 2269 Output Total 75 Balance 25 2269 Intake: IV Fluids 2144 NS (0.9%) 2144 IVPB 125 ABX - ZOSYN 125 Oral 100 Output: Pigtail Drain 75 Other: Estimated Void Medium # Bowel Movements 0 0 # Voids 2 General: NAD Abdomen: Soft, tender to palpation in RUQ around drain. No rebound or guarding. Nondistended. Drain with serous fluid in drain. Neuro: Alert and oriented x3. Moves all extremities equally. Psych: Flat affect. Laboratory Results - last 24 hr 07/07/19 07/07/19 07/07/19 05:51 05:51 08:02 WBC 12.6 H RBC 3.04 L Hgb 8.1 L Hct 25 L MCV 82 MCH 27 MCHC 33 RDW 17 H Plt Count 833 H D MPV 7.4 Neut % (Auto) 62.2 Lymph % (Auto) 19.4 Wolfe % (Auto) 16.1 Eos % (Auto) 1.2 Baso % (Auto) 1.1 Absolute Neuts (auto) 7.9 H Absolute Lymphs (auto) 2.5 Absolute Monos (auto) 2.0 H Absolute Eos (auto) 0.2 Absolute Basos (auto) 0.1 Absolute Nucleated RBC 0.0 Nucleated RBC % 0.1 Hem Pathologist Commnt Sodium 136 Potassium 3.5 Chloride 106 Carbon Dioxide 23 Anion Gap 7 BUN 9 Creatinine 0.48 L Est GFR ( Amer) 178.1 Est GFR (Non-Af Amer) 147.2 BUN/Creatinine Ratio 18.8 Glucose 77 POC Glucose (mg/dL) 92 Calcium 9.7 A&P 34F with intra-abdominal fluid collection s/p ex lap, splenectomy, BSO, washout on 06/13/19. -Drain to gravity. -Continue antibiotics. Awaiting culture results. -Diet as tolerated -F/u with surgeon at [facility] on Mon as scheduled. From surgical standpoint , could be discharged with oral antibiotics and drain to gravity. Explained to patient that she should record amount of drainage each day. -Please call with questions.
--- NOTE | 2019-07-07 13:50 | CONS ---
CONSULTATION REPORT: DATE OF CONSULT: 07/07/19 REQUESTING PHYSICIAN: Dr. Lei. CONSULTING SERVICE: Infectious Disease. REASON FOR CONSULT: Abdominal infection. IMPRESSION: 1. Perihepatic fluid collection on CT in the setting of right-sided abdominal pain, fever, and sweat s a couple of weeks after exploratory laparotomy, splenectomy, and salpingo-oophorectomy. The fluid apparently was initially murky, but now is clear and yellow. A Gram stain from drainage procedure sh ows neutrophils, no organisms, and the culture is negative at 24 hours. This could be a sterile joana ection based on the appearance of fluid, which may be unrelated to infection, i.e., recently had chem otherapy instilled. Alternatively, it could be infection that is just not producing a pyogenic respo nse. 2. Fever, leukocytosis. No respiratory symptoms and clear chest CT. Fever and leukocytosis improvi ng since drainage procedure and Zosyn therapy. COVID PCR negative. I think it is unlikely that she has COVID infection. 3. 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 4. CLARITHROMYCIN caused vomiting. RECOMMENDATIONS: Continue Zosyn while we await culture results. If nothing grows, agree with elia moore to oral antibiotics, i.e., Augmentin so that she can see her surgeon at [facility] on Wednesday. S he can plan on 2 weeks of oral antibiotics and followup imaging will defer to her surgeon at [place]. 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 Her incision has been i mproving so as lena and then developed right-sided abdominal pain, which was severe and then becam e more prominent in her back and was associated with fevers, chills, and vomiting. Her surgeon recom mended that she come into the ER and was seen here on 07/05/19 where her white count was 18,000. She had a low-grade fever. She had a CT scan of the chest, abdomen, and pelvis that showed perihepatic fluid collection, which is 14 x [address] Gaines placed a drain in it, fluid was cloudy, sent t o the lab with results as above and a drain is left in place and has been on Zosyn since with no recu rrence of fever. Her white count is down to 12,000. Her abdominal pain has nearly resolved. She is eating and drinking, moving her bowels. No cough or shortness of breath. PAST MEDICAL HISTORY: 1. Type 2 diabetes. 2. Polycystic ovarian syndrome. 3. Hypertension. 4. Gout. PAST SURGICAL HISTORY: 1. Status post appendectomy. 2. Status post splenectomy and bilateral salpingo-oophorectomy, with chemotherapy instillation into the peritoneum for appendiceal mucinous tumor. ALLERGIES: ALBUTEROL and CLARITHROMYCIN. MEDICATIONS: 1. Tylenol. 2. Allopurinol. 3. Docusate. 4. Enoxaparin. 5. Zosyn 3.375 g IV every 8 hours by extended infusion. SOCIAL HISTORY: She lives in [place] with her family. She smokes marijuana. FAMILY HISTORY: Parents are alive and healthy. REVIEW OF SYSTEMS: All negative except as noted above to a 12-point review of systems. PHYSICAL EXAM: Vital Signs: Temperature is 36, heart rate 80, respiratory rate 18, blood pressure 1 24/65, oxygen saturation 97% on room air. In general, she is awake, not in distress. Neurologic: S he is oriented x3. Follows all commands. HEENT: There is no conjunctival hemorrhage. Oropharynx wi thout lesions. Neck is supple without mass. Heart is regular rate and rhythm without murmurs, rubs, or gallops. Lungs are clear to auscultation bilaterally. Abdomen: Soft, nontender, nondistended. There are bowel sounds present. Midline incision has healed with lena present. Right-sided abdo ryan drain with clear yellow fluid. Skin: There is no rash or splinter hemorrhage. Musculoskeletal : There is no spine tenderness to palpation. LABORATORY DATA: White blood cell count 12, hemoglobin 8, MCV 82, platelets 833. Creatinine 0.4. CR P 153. Please see impression and recommendations outlined above. Thanks for asking me to see Ms. Peterson in consultation. [id number]/[facility] #: [id number]
[2019-07-07] MEDS: Docusate CAP* 100 MG PO PRN (18:39)
[2019-07-07] MEDS: Enoxaparin(*) 40 MG/0.4 ML SYR SUBCUT SCH (21:42)
[2019-07-07] MEDS ORDERED: Polyethylene Glycol 3350* 17 GM PACKET PO PRN (21:46)
[2019-07-08] MEDS: ZOSYN 3.375 GM Q8H per EXTENDED INFUSION IVPB SCH ×6 (06:14→22:09)
[2019-07-08 07:03] LABS: Hematocrit 28 % (35-47); Hemoglobin 9.3 g/dL (12.0-16.0); Mean Corpuscular HGB Conc 33 g/dL (31-36); Mean Corpuscular Hemoglobin 26 pg (27-31); Mean Corpuscular Volume 80 fL (80-97); Platelet Count 860 10^3/uL (150-450); Red Blood Count 3.53 10^6 /uL (3.70-4.87); Red Cell Distribution Width 17 % (10-15); White Blood Count 9.9 10^3/uL (3.5-10.8)
[2019-07-08 07:24] LABS: BUN/Creatinine Ratio 15.1 (8-20); Calcium 10.1 mg/dL (8.6-10.3); EGFR African American 158.8 (>60); EGFR Non-African American 131.3 (>60); Potassium 3.6 mmol/L (3.5-5.0)
[2019-07-08] MEDS: Insulin LISPRO* 1 UNITS UNIT SUBCUT SCH ×3 (07:30→17:25)
[2019-07-08] MEDS: oxyCODONE/Acetamin 5/325 MG* TAB PO PRN ×2 (07:47→23:58)
[2019-07-08] MEDS: Allopurinol TAB* 100 MG PO SCH (07:48)
--- NOTE | 2019-07-08 14:31 | PN ---
Subjective Date of Service: 07/08/19 Interval History: Pt c/o intermittent LUQ pain . Had 2 formed BM's, denies pain in RLQ. Drain in RLQ with approx 40 ml of dark yellow fluid Objective Active Medications: Acetaminophen (Tylenol Tab*) 650 mg PO Q4H PRN PRN Reason: PAIN - MILD Allopurinol (Zyloprim Tab*) 100 mg PO DAILY [facility] Last Admin: 07/08/19 07:48 Dose: 100 mg Dextrose (D50w Syringe 50 Ml*) 12.5 gm IV PUSH .FOR FS < 60 - SS PRN PRN Reason: FS < 60 Docusate Sodium (Colace Cap*) 100 mg PO BID PRN PRN Reason: CONSTIPATION Last Admin: 07/07/19 18:39 Dose: 100 mg Enoxaparin Sodium (Lovenox(*)) 40 mg SUBCUT Q24H [facility] Last Admin: 07/07/19 21:42 Dose: 40 mg Piperacillin Sod/Tazobactam (Sod 3.375 gm/ Sodium Chloride) 100 mls @ 25 mls/ hr IVPB Q8H [facility] Last Admin: 07/08/19 14:07 Dose: 25 mls/hr Insulin Human Lispro (Humalog*) 0 units SUBCUT [facility]; Protocol Last Admin: 07/08/19 12:00 Dose: 2 units Morphine Sulfate (Morphine Inj (Syringe)*) 4 mg IV Q4H PRN PRN Reason: PAIN - SEVERE Ondansetron HCl (Zofran Inj*) 4 mg IV Q6H PRN PRN Reason: NAUSEA Last Admin: 07/06/19 13:06 Dose: 4 mg Oxycodone/Acetaminophen (Percocet 5/325 Tab*) 1 tab PO Q4H PRN PRN Reason: PAIN - MODERATE Last Admin: 07/08/19 07:47 Dose: 1 tab Pharmacy Consult (Zosyn Per Pharmacy*) 1 note FOLLOW UP .ZOSYN PER PHARMACY [facility] Polyethylene Glycol/Electrolytes (Miralax (17 Gm Dose Mega)) 17 gm PO DAILY PRN PRN Reason: CONSTIPATION Last Admin: 07/07/19 22:57 Dose: 17 gm Vital Signs - 8 hr 07/08/19 07/08/19 07/08/19 07:15 07:47 08:00 Temperature 98.7 F Pulse Rate 85 Respiratory 22 16 16 Rate Blood Pressure 126/64 (mmHg) O2 Sat by Pulse 98 Oximetry 07/08/19 07/08/19 11:59 12:08 Temperature 98.4 F Pulse Rate 85 Respiratory 18 20 Rate Blood Pressure 144/77 (mmHg) O2 Sat by Pulse 99 Oximetry Oxygen Devices in Use Now: None Appearance: 34 yo F in nAD, AAOx3 Eyes: No Scleral Icterus, PERRLA Ears/Nose/Mouth/Throat: NL Teeth, Lips, Gums, Mucous Membranes Moist Neck: NL Appearance and Movements; NL JVP, Trachea Midline Respiratory: Symmetrical Chest Expansion and Respiratory Effort Cardiovascular: NL Sounds; No Murmurs; No JVD, RRR Abdominal: - - soft, mild tenderness in LUQ, drain in RLQ with 40 ml of dark yellow fluid Lymphatic: No Cervical Adenopathy Extremities: No Edema Skin: No Rash or Ulcers, No Nodules or Sclerosis Neurological: Alert and Oriented x 3, NL Muscle Strength and Tone Result Diagrams: 07/08/19 06:55 07/08/19 06:55 Microbiology and Other Data: Microbiology 07/06/19 16:00 Gram Stain - Preliminary Body Fluid - Abdominal Body Fluid Culture - Preliminary No Growth Day 1 07/05/19 21:09 Aerobic Blood Culture - Preliminary Blood Venous No Growth Day 1 Anaerobic Blood Culture - Preliminary No Growth Day 1 07/05/19 13:16 Aerobic Blood Culture - Preliminary Blood Venous No Growth Day 1 Anaerobic Blood Culture - Preliminary No Growth Day 1 07/05/19 15:34 Urine Culture - Final Urine No Growth (<1,000 CFU/mL) Assess/Plan/Problems-Billing Assessment: 34 yo F with 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 (appy done in [place] 03/23), went to [facility] for splenectomy and oophrectomy and chemo infusion on 06/13/19 for mucinous tumor involvement, now with abd pain beginning 07/03/19 with likely intra-abd abscess - Patient Problems (1) Abdominal abscess Comment: CT at admission shows abscess at 83l17h4 cm, s/p IR placed drain in RLQ by Dr. Gaines on 07/06/19, drain draining yellow fluid -approx the amount of flushes, no purulent material noted. Cx neg cont Zosyn appreciate surgery /ID consult leukocytosis and tachycardia due to sepsis resolved (2) DM2 (diabetes mellitus, type 2) Comment: DM2, holding metformin, cont ISS (3) Suspected COVID-19 virus infection Comment: test neg (4) Anemia Comment: likely due to extensive surgeries in the past 3 mos, con to monitor , no signs of acute bleeding (5) DVT prophylaxis Comment: cont lovenox Status and Disposition: Inpatient, planned d/c tomorrow, pt has a f/u appt at [place] on Wednesday
[2019-07-08] MEDS: Ondansetron INJ* 2 MG/ML VIAL IV PRN (22:08)
[2019-07-08] MEDS: Enoxaparin(*) 40 MG/0.4 ML SYR SUBCUT SCH (22:10)
[2019-07-09] MEDS: Ondansetron INJ* 2 MG/ML VIAL IV PRN (06:13)
[2019-07-09] MEDS: ZOSYN 3.375 GM Q8H per EXTENDED INFUSION IVPB SCH ×2 (06:14)
[2019-07-09] MEDS: Insulin LISPRO* 1 UNITS UNIT SUBCUT SCH (08:14)
[2019-07-09] MEDS: Allopurinol TAB* 100 MG PO SCH (08:14)
--- NOTE | 2019-07-09 11:32 | PN ---
Progress Note - Progress Note Date of Service: 07/09/19 Note: Seen with Dr. Lei. Patient going home. Reports feeling pain in her back with abx infusion, otherwise well. Vital Signs Temp 97.8 F 07/09/19 08:20 Pulse 85 07/09/19 08:20 Resp 18 07/09/19 08:20 BP 126/80 07/09/19 08:20 Pulse Ox 100 07/09/19 08:20 Gen: NAD; sitting in chair. Abd: well healed M/L incision without erythema. Pigtail in RLQ with serous fluid in bag. Drain d/c'd by Dr. Lei without difficulty. 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 She will f/u at [facility].
[2019-07-09 11:33] VITALS: BP 125/66
--- NOTE | 2019-07-09 13:43 | DS ---
CC: Dr. Reynoso; Dr. Russell, [facility], Surgical Oncology Department, phone number is [phone]; Dr. Moody Sánchez from [facility] Surgical Department; Dr. Gaines; Dr. Pressley; Dr. Davis; and Dr. Culver * DISCHARGE SUMMARY: DATE OF ADMISSION: 07/05/19 DATE OF DISCHARGE: 07/09/19 PRIMARY CARE PROVIDER: Dr. Reynoso. INTERVENTIONAL RADIOLOGY: Dr. Gaines. GENERAL SURGERY: Dr. Pressley. INFECTIOUS DISEASE: Dr. Davis. DISPOSITION AT DISCHARGE: Home. CONDITION ON DISCHARGE: Stable. DISCHARGE DIAGNOSIS: Sepsis due to intraabdominal abscess, status post IR drain placed in the right lower quadrant, performed by Dr. Gaines. SECONDARY DIAGNOSES: 1. 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 2. On 06/13/19, Dr. Russell performed splenectomy, fallopian tube resection bilaterally and oophorectomy and chemotherapy wash intraperitoneally. 3. Diabetes type 2, on metformin. 4. Polycystic ovarian syndrome with hirsutism. 5. Hypertension. 6. Gout. MEDICATIONS AT DISCHARGE: Include: 1. Augmentin 875 mg b.i.d. for a total of 14 days. 2. Ultram 50 mg every 6 hours p.r.n. 3. Metformin 500 mg daily. 4. Lisinopril 2.5 mg daily. 5. Motrin 600 mg every 6 hours p.r.n. 6. Colace 50 mg every 6 hours p.r.n. 7. Allopurinol 100 mg daily. 8. Tylenol 500 mg every 6 hours p.r.n. CONSULTATIONS DURING THE HOSPITAL STAY: Included Dr. Pressley from Surgery; Dr. Gaines, Interventional Radiology; Dr. Davis, Infectious Diseases. FOLLOWUP APPOINTMENTS AT DISCHARGE: The patient is recommended to follow up with appointment with Dr. Russell in [place] that is scheduled already on . The patient is asked to call Dr. Reynoso's office to schedule a followup appointment for primary care provider in 4 to 7 days. LABORATORY DATA AND STUDIES PERFORMED DURING THE HOSPITAL STAY: Included: Blood cultures performed at admission were negative. Gram stain and fluid cultures obtained on 07/06/19 from the IR drain insertion in the right lower quadrant of the abdomen showed +4 neutrophils, no organisms. On 07/08/19, white blood cell count 9.9, hemoglobin 9.3, hematocrit 28, and platelets 860. Sodium 136, potassium 3.6, chloride 104, carbon dioxide 23, BUN 8, creatinine 0.53. Liver function tests at admission showed total bilirubin of 0.4, AST of 9, ALT of 9, alkaline phosphatase of 76. C-reactive protein on admission was 153. CTA of chest, abdomen and pelvis obtained on admission, impression: "No definite pulmonary embolism is noted, although opacification is suboptimal. No aortic dissection is noted. Right basilar and left lower lobe atelectasis noted. There is a small amount of perihepatic fluid just under the anterior abdominal wall, which may be postoperative in nature. This measured approximately 4 cm in length, 2 cm AP and 11 cm in width. Small amount of free air is noted and this may represent postoperative change. There is fluid in the left splenic fossa, correlation with history of splenectomy is suggested. No free fluid is noted in the pelvis". Cytology from the abdominal fluid obtained on 07/06/19 from the abdominal fluid collection noted acute inflammation and negative for malignant cells. That is the pathology report. HOSPITALIZATION COURSE: Anais Peterson is a 34-year-old female with history of mucinous tumor that was discovered when she was diagnosed with acute appendicitis at [facility] on 03/15/19. The patient subsequently was seen in [facility] on 03/29/19 and was noted to have recurrent intraabdominal collections. She was referred to [facility] and on , she had laparotomy with splenectomy, bilateral salpingo-oophorectomy performed by Dr. Russell from Surgical Oncology there. Postoperatively, she did well until approximately 2 days prior to her current admission when she noted to have increased left upper quadrant abdominal pain. She was afebrile when she was admitted to our facility, but she had marked leukocytosis with WBCs of 18,000 and she was tachycardic. She was diagnosed with sepsis likely due to intraabdominal abscess. The CT as mentioned above showed fluid collection in the right lower quadrant, but also postoperative fluid in the left splenic fossa. Interestingly enough, the patient was always tender more in the left upper quadrant than the right lower quadrant. Nevertheless, the collection was in the right lower quadrant and that was accessed by the Interventional Radiology and drain was placed by Dr. Gaines on 07/06/19. Approximately 20 mL of sample was aspirated with syringe and sent to Pathology at that point. I believe at the very beginning when the fluid was collected by the interventional radiologist, it appeared slightly purulent, but later on, it was yellowish/straw colored with no evidence of purulence. The patient continued with drain flushes for the next couple of days and continuation of treatment with Zosyn, which was the antibiotic she had been on ever since the admission. We did not have a significant fluid output apart from the amount of flushes delivered and the drain was discontinued on day of discharge on 07/09/19. The cultures were negative up to date. Dr. Davis saw the patient in consultation from Infectious Diseases. Recommend the continuation of Zosyn and discharging the patient today, so she can make her scheduled appointment at [facility] tomorrow. The patient is to continue Augmentin for the next 2 weeks unless the specialist at [facility] recommends otherwise. Please note the pathology from the fluid and cytology from the fluid was negative for malignant cells and positive for inflammation. By the time of discharge, her pain in the left upper quadrant is minimal. The patient's right-sided abdominal drain was discontinued by myself under direction of Dr. Culver from Surgery. There were no complications. At discharge, the patient is recommended to follow up as above mentioned. The patient is recommended to cover her abdominal wound/puncture wound with Band - Aid and to shower without any restrictions. PHYSICAL EXAM AT THE TIME OF DISCHARGE: Blood pressure 126/80, heart rate of 85 and regular, respiratory rate 18, oxygen saturation 100% on room air, temperature 97.8. General: The patient is a very pleasant 34-year-old female who is in no acute distress. The patient is alert and oriented x3. HEENT: Head atraumatic, normocephalic. Eyes: Pupils equal and reactive to light and accommodation. Oropharynx clear. Mucosa moist. Neck: Supple. No JVD. No bruits bilaterally. Cardiovascular; Regular rate and rhythm. No murmur. Respiratory: Clear to auscultation bilaterally. Abdomen: Soft. Minimally tender in left upper quadrant with no rebound, no guarding. Bowel sounds present in all 4 quadrants. Please note that during the patient's evaluation today, her IR drain was discontinued that was localized in the right lower quadrant. The suture was removed and the drain was pulled without any problems. The wound was overed with Band-Aid. There is no evidence of infection of the surrounding skin. Extremities: There is no edema. Pulses +2 bilaterally. No clubbing or cyanosis. Please note this is a short summary of the patient's hospitalization. Please refer to further medical records for details. TIME SPENT: Approximately 45 minutes was spent on the patient's discharge. [id number]/[facility] #: [id number] [facility]
== END 2019-07-09 12:35 | disposition home or self-care (01) | DRG 710 ==
LOC: ED 11:20 → MED 19:28 → MEDTELE 07-07 17:49
PROVIDERS: ADMIT Nurse Practitioner Family; ATTEND Internal Medicine
PROC: 0W9G3ZX Drainage of Peritoneal Cavity, Percutaneous Approach, Diagnostic (ICD-10-PCS; principal; 2019-07-06)
DX: A41.9 Sepsis, unspecified organism (principal); K65.1 Peritoneal abscess; T81.42XA Infection following a procedure, deep incisional surgical site, initial encounter; J98.11 Atelectasis; E11.9 Type 2 diabetes mellitus without complications; E28.2 Polycystic ovarian syndrome; L68.0 Hirsutism; I10 Essential (primary) hypertension; M10.9 Gout, unspecified; D72.829 Elevated white blood cell count, unspecified; E83.52 Hypercalcemia; E86.0 Dehydration; D64.9 Anemia, unspecified; F17.200 Nicotine dependence, unspecified, uncomplicated; E66.9 Obesity, unspecified; X58.XXXA Exposure to other specified factors, initial encounter; Z79.84 Long term (current) use of oral hypoglycemic drugs; Z79.899 Other long term (current) drug therapy; Z88.8 Allergy status to other drugs, medicaments and biological substances; Z90.81 Acquired absence of spleen; Z90.722 Acquired absence of ovaries, bilateral; Z83.3 Family history of diabetes mellitus; Z68.36 Body mass index [BMI] 36.0-36.9, adult
CPT/HCPCS: 36415; 71275; 74177; 75989; 76705; 80048; 80053; 81003; 81015; 83605; 83690; 85014; 85018; 85025; 85027; 85060; 85610; 86140; 87040; 87070; 87086; 87205; 87635; 88112; 96365; 96375; 99284; A9270-GY; J1650; J2270; J2405; J2543; J3010; Q9967